=== PATIENT | female | born 1980 | race Caucasian/White ===

== ENCOUNTER 2023-03-30 07:02 | Outpatient (OUT) | payer BC, SELFPAY ==
[2023-03-30 07:28] LABS: Basophils Percent Auto 0.7 % (0.2-2.0); Eosinophils Absolute Auto 0.1 10^3/uL (0.0-0.7); Eosinophils Percent Auto 2.5 % (0.9-7.0); Hematocrit 42.5 % (36.0-48.0); Immature Granulocytes Abs Auto 0.01 10^3/uL (0.00-0.03); Immature Granulocytes Pct Auto 0.2 % (0.0-0.5); Lymphocytes Percent Auto 35.9 % (20.5-60.0); Mean Corpuscular HGB Conc 32.9 g/dL (29.9-35.2); Mean Corpuscular Hemoglobin 29.2 pg (26.7-34.0); Mean Corpuscular Volume 88.7 fL (81.0-99.0); Mean Platelet Volume 9.8 fL (9.5-13.5); Monocytes Absolute Auto 0.5 10^3/uL (0.3-0.8); Monocytes Percent Auto 8.8 % (1.7-12.0); Neutrophils Absolute Auto 2.9 10^3/uL (1.4-6.5); Neutrophils Percent Auto 51.9 % (43.0-75.0); Platelet Count 323 10^3/uL (150-450); Red Blood Count 4.79 10^6/uL (4.20-5.40); Red Cell Distribution Width 12.8 % (11.0-15.0); White Blood Count 5.6 10^3/uL (4.0-11.0)
[2023-03-30 08:24] LABS: Alanine Aminotransferase 31 U/L (14-59); Albumin Globulin Ratio 0.9; Albumin Level 3.5 g/dL (3.4-5.0); Alkaline Phosphatase 64 U/L (46-116); Anion Gap 13.7; Aspartate Amino Transferase 15 U/L (15-37); BUN Creatinine Ratio 15.9; Bilirubin Total 0.5 mg/dL (0.2-1.0); Calcium 8.5 mg/dL (8.5-10.1); Carbon Dioxide 23.2 mmol/L (21.0-32.0); Chloride 103 mmol/L (98-107); Chol HDL Ratio 3.1; Cholesterol 179 mg/dL (<=200); Estimated GFR (African America >60 (>=60); Estimated GFR (Non-African Ame >60 (>=60); Globulin 3.7 g/dL; Glucose 102 mg/dL (74-106); HDL Cholesterol 57 mg/dL (40-60); Potassium 3.9 mmol/L (3.5-5.1); Sodium 136 mmol/L (136-145); Thyroid Stimulating Hormone 1.656 uIU/mL (0.358-3.740); Total Protein 7.2 g/dL (6.4-8.2); Triglycerides 70 mg/dL (<=150)
[2023-03-30 08:44] LABS: Estimated Average Glucose 100 mg/dL; Glycohemoglobin A1C 5.1 % (4.5-6.2)
== END 2023-03-30 07:03 | disposition home or self-care (01) ==
PROVIDERS: PCP Internal Medicine; Visit Provider Internal Medicine
DX: Z00.00 Encounter for general adult medical examination without abnormal findings (principal)
CPT/HCPCS: 36415; 80053; 80061; 83036; 84443; 85025

== ENCOUNTER 2023-03-31 15:34 | Outpatient (OUT) | payer BC, SELFPAY ==
--- NOTE | 2023-03-31 15:37 | MM_ITS ---
Patient: EDDIE VARGAS Exam Date: 03/31/2023 : 1980 Gender:F Ordering : DR Gonzalez Wahl D.O. Admission #: [id number] Family : Order #: [id number] CLICK HERE TO VIEW EXAM RADIOLOGY REPORT PROCEDURE: MM TOMOSYNTHESIS SCREENING BI COMPARISON: MG MAMM SCREEN SUSAN W CAD, 02/06/2020. MG MAMM SCREEN SUSAN W CAD, 01/05/2019. MG MAMM SUSAN SCRN W CAD DIG, 02/13/2014. INDICATIONS: Screening mammogram Z12.31 Calculator Name NCI Breast Cancer Risk Assessment Tool 5 Year Breast Cancer Risk 0.90% Lifetime Breast Cancer Risk 11.70% Personal Breast Cancer No Personal Ovarian Cancer No Treatments None Family Cancers Mother with renal cancer cancer at age 60. LOCATION: [facility] BREAST COMPOSITION: Extremely dense, which lowers the sensitivity of mammography. FINDINGS: DIAGNOSTIC CATEGORY 1--NEGATIVE. RIGHT BREAST: No significant suspicious finding. No significant change has occurred. LEFT BREAST: No significant suspicious finding. No significant change has occurred. RECOMMENDATIONS: ROUTINE MAMMOGRAM AND CLINICAL EVALUATION IN 12 MONTHS. PLEASE NOTE: A NORMAL MAMMOGRAM DOES NOT EXCLUDE THE POSSIBILITY OF BREAST CANCER. A CLINICALLY SUSPICIOUS PALPABLE LUMP SHOULD BE BIOPSIED. Dictated by: Dejan Callaway M.D. on 04/01/2023 at 13:30 Approved by: Dejan Callaway M.D. on 04/01/2023 at 13:32
== END 2023-03-31 15:35 | disposition home or self-care (01) ==
LOC: MAMMO 15:35
PROVIDERS: PCP Internal Medicine; Visit Provider Internal Medicine
DX: Z12.31 Encounter for screening mammogram for malignant neoplasm of breast (principal); Z80.51 Family history of malignant neoplasm of kidney
CPT/HCPCS: 77063; 77067

== ENCOUNTER 2024-02-16 14:12 | Outpatient (OUT) | payer BC, SELFPAY | END 2024-02-16 14:13 | disposition home or self-care (01) | LOC: PST 14:12 | PROVIDERS: PCP Internal Medicine; Visit Provider Surgery | DX: Z01.818 Encounter for other preprocedural examination (principal); Z12.11 Encounter for screening for malignant neoplasm of colon; Z80.0 Family history of malignant neoplasm of digestive organs ==

== ENCOUNTER 2024-04-05 11:02 | Outpatient (OUT) | payer BC, SELFPAY ==
--- NOTE | 2024-04-05 11:04 | MM_ITS ---
Patient Name: EDDIE VARGAS MR#: [id number] : 1980 Exam Date: 04/05/2024 Ordering Doctor: DR Gonzalez Wahl D.O. RADIOLOGY REPORT PROCEDURE: MM TOMOSYNTHESIS SCREENING BI COMPARISON: MM TOMOSYNTHESIS SCREENING BI, 03/31/2023. MG MAMM SCREEN SUSAN W CAD, 02/06/2020. INDICATIONS: Screening Calculator Name NCI Breast Cancer Risk Assessment Tool 5 Year Breast Cancer Risk 1.00% Lifetime Breast Cancer Risk 11.60% Personal Breast Cancer No Personal Ovarian Cancer No Treatments None Family Cancers Mother with renal cancer cancer at age 60. LOCATION: [facility] BREAST COMPOSITION: The breasts are extremely dense, which lowers the sensitivity of mammography. FINDINGS: DIAGNOSTIC CATEGORY 2--BENIGN FINDING. NO CHANGE FROM COMPARISON. Scattered benign-appearing lymph nodes are present. RIGHT BREAST: No significant suspicious finding. LEFT BREAST: No significant suspicious finding. RECOMMENDATIONS: ROUTINE MAMMOGRAM AND CLINICAL EVALUATION IN 12 MONTHS. PLEASE NOTE: A NORMAL MAMMOGRAM DOES NOT EXCLUDE THE POSSIBILITY OF BREAST CANCER. A CLINICALLY SUSPICIOUS PALPABLE LUMP SHOULD BE BIOPSIED. Dictated by: Fabrice Altamirano MD on 04/05/2024 at 12:01 Approved by: Fabrice Altamirano MD on 04/05/2024 at 12:01
== END 2024-04-05 11:03 | disposition home or self-care (01) ==
LOC: MAMMO 11:02
PROVIDERS: PCP Internal Medicine; Visit Provider Internal Medicine
DX: Z12.31 Encounter for screening mammogram for malignant neoplasm of breast (principal); Z80.51 Family history of malignant neoplasm of kidney
CPT/HCPCS: 77063; 77067

== ENCOUNTER 2024-04-06 09:58 | Outpatient (OUT) | payer BC, SELFPAY ==
--- OUTSIDE RECORDS SUMMARY | 2024-04-06 10:21 | XMS_ITS | CCD ---
Author Organization [facility] Care Team Providers Care Casing Cleaner Name Role Phone KELVIN HEWITT Consulting Unavailable KELVIN HEWITT Attending Unavailable JAY, DR BRIDGES Primary Care Unavailable KELVIN HEWITT Admitting Unavailable KASH, KELVIN Admitting Unavailable KELVIN HEWITT Consulting Unavailable KELVIN HEWITT Attending Unavailable JAY, DR BRIDGES Primary Care Unavailable JAY, DR BRIDGES Consulting Unavailable JAY, DR BRIDGES Attending Unavailable JAY, DR BRIDGES Admitting Unavailable JAY, DR BRIDGES Primary Care Unavailable Gonzalez Thompson Unavailable Primary Care Provider UnavailRAZIA Cordova Attending Unavailable GONZALEZ THOMPSON Referring Unavailable GONZALEZ THOMPSON Primary Care Unavailable Allergies Allergy Classification Reported Allergen(s) Allergy Type Date of Onset Reaction(s) Facility (1 source) Shellfish Drug allergy (disorder) [facility] Repository (20 sources) Shellfish Drug allergy Comment:SHELLShelly SARY [place] Other (1 source) Shellfish; Translations: [SHELLFISH DERIVED] Propensity to adverse reactions to food (disorder) 4 [facility] Repository (1 source) FISH CONTAINING PRODUCTS; Translations: [FISH CONTAINING PRODUCTS] Propensity to adverse reactions to food (disorder) 9 [facility] Repository Medications Current Medications Medication Drug Class(es) Dates Sig (Normalized) Sig (Original) Norgestimate-Ethin yl Estradiol (15 sources) Progestin, Estrogen Start: 11-25-2023 take 1 tablet by mouth once daily Norgestimate-Ethi nyl Estradiol (Nadiya) 0.25-35 mg-mcg tablet Active 1 TAB PO Daily November 25, 2023 12:00am take 1 tablet by mouth once bobby y Nadiya 0.25-35 MG-MCG TAKE 1 TABLET BY MOUTH EVERY DAY for 84 Active traZODone hydrochloride 50 mg oral tablet (2 sources) Serotonin Reuptake Inhibitor Start: 12-03-2023 take 1 tablet by mouth once daily at bedtime Trazodone Active 0 .ROUTE .COMPLEX 90 December 03, 2023 4:04pm TAKE 1 TABLET BY MOUTH EVERYDAY AT BEDTIME Start: 12-03-2023 End: 12-03-2023 take 50 mg by mouth once daily at bedtime Trazodone Discontinued 50 MG PO Daily at bedtime December 03, 2023 12:00am December 03, 2023 4:04pm Completed/Discontinued Medications Medication Drug Class(es) Dates Sig (Normalized) Sig (Original) phentermine hydrochloride 37.5 mg oral tablet (20 sources) Sympathomimetic Amine Anorectic Start: 09-06-2023 End: 03-21-2024 take 37.5 mg by mouth once daily Phentermine Discontinued 37.5 MG PO Daily October 05, 2023 10:45pm November 10, 2023 12:54pm Rx #6 Start: 08-04-2023 take 1 tablet by jairon once daily before breakfast Adipex-P 37.5 MG 1 tablet before breakfast Orally Once a day for 30 days Rx #5 Jul, Active Start: 07-31-2023 take 1 tablet by jairon once daily before breakfast Adipex-P 37.5 MG 1 tablet before breakfast Orally Once a day for 30 days Rx #5 Jul, Active Start: 06-23-2023 take 1 tablet by jairon once daily before breakfast Adipex-P 37.5 MG 1 tablet before breakfast Orally Once a day for 30 days start 06/23Jun, Active Start: 05-21-2023 take 1 tablet by jairon once daily before breakfast Adipex-P 37.5 MG 1 tablet before breakfast Orally Once a day for 30 days start 05/24May, Active Start: 04-24-2023 take 1 tablet by jairon once daily before breakfast Adipex-P 37.5 MG 1 tablet before breakfast Orally Once a day for 30 days start 04/24Apr, Active Start: 03-24-2023 take 1 tablet by jairon once daily before breakfast Adipex-P 37.5 MG 1 tablet before breakfast Orally Once a day Start 03/21Mar, Active Start: 03-20-2023 take 1 tablet by jairon th once daily before breakfast Adipex-P 37.5 MG 1 tablet before breakfast Orally Once a day for 30 days Start 03/21Mar, Active Sprintec (28) 0.25-35mg-mcg (20 sources) Start: 05-25-2022 take 1 tablet by mouth once daily as needed Sprintec (28) 0.25-35mg-mcg Sprintec (28) 0.25-35mg-mcg, 1 (one) Tablet daily # 28, 05/25/2022, Ref. x11. Active oral daily for 28 Please dispense 3 pill packs at one time. *Reorder from [employer] TV for eRx and Interaction Alerts* May, Not-Taking/PRN Start: 05-25-2022 take 1 tablet by jairon th once daily Sprintec (28) 0.25-35mg-mcg Sprintec (28) 0.25-35mg-mcg, 1 (one) Tablet daily # 28, 05/25/2022, Ref. x11. Active oral daily for 28 Please dispense 3 pill packs at one time. *Reorder from [employer] TV for eRx and Interaction Alerts* May, Not-Taking Problems Active Problems Problem Classification Problem Date Documented Date Episodic/Chronic Anxiety disorders (20 sources) Generalized anxiety disorder; Translations: [Generalized anxiety disorder] Chronic Contraceptive and procreative management (5 sources) Surveillance of contraception; Translations: [Encounter for contraceptive management, unspecified] Episodic Headache; including migraine (9 sources) Chronic migraine without aura, non-refractory; Translations: [Migraine without aura, not intractable, without status migrainosus] 11-25-2023 Chronic Miscellaneous mental health disorders (7 sources) Primary insomnia; Translations: [Primary insomnia] 11-25-2023 Chronic Mood disorders (6 sources) Mood swings; Translations: [Emotional lability] 11-25-2023 Episodic Other nutritional; endocrine; and metabolic disorders (20 sources) Body mass index 40+ - severely obese; Translations: [Body mass index (BMI) 40.0-44.9, adult] Chronic Other nutritional; endocrine; and metabolic disorders (18 sources) Simple obesity ; Translations: [Other obesity due to excess calories] Onset: 10-06-2016 Chronic Other nutritional; endocrine; and metabolic disorders (19 sources) Morbid obesity; Translations: [Morbid (severe) obesity due to excess calories] Chronic Other nutritional; endocrine; and metabolic disorders (9 sources) Morbid (severe) obesity due to excess calories; Translations: [Morbid (severe) obesity due to excess calories] Chronic Other nutritional; endocrine; and metabolic disorders (1 source) Body mass index (BMI) 40.0-44.9, adult Chronic Other nutritional; endocrine; and metabolic disorders (20 sources) Body mass index 30+ - obesity; Translations: [Body mass index (BMI) 39.0-39.9, adult] Chronic Other nutritional; endocrine; and metabolic disorders (8 sources) Other obesity due to excess calories; Translations: [Other obesity due to excess calories] Onset: 10-06-2016 Chronic Other nutritional; endocrine; and metabolic disorders (2 sources) Body mass index (BMI) 39.0-39.9, adult Chronic Other nutritional; endocrine; and metabolic disorders (1 source) Body mass index (BMI) 38.0-38.9, adult Chronic Other nutritional; endocrine; and metabolic disorders (1 source) Body mass index (BMI) 37.0-37.9, adult Chronic Other nutritional; endocrine; and metabolic disorders (1 source) Obesity caused by energy imbalance; Translations: [Morbid (severe) obesity due to excess calories] 11-25-2023 Chronic Other nutritional; endocrine; and metabolic disorders (2 sources) Obesity; Translations: [Obesity, unspecified] 11-25-2023 Chronic Other nutritional; endocrine; and metabolic disorders (1 source) Obesity, unspecified; Translations: [Obesity, unspecified] 11-25-2023 Chronic Other screening for suspected conditions (not mental disorders or infectious disease) (4 sources) Encounter for screening mammogram for malignant neoplasm of breast; Translations: [Encounter for screening for malignant neoplasm of colon] Onset: 01-26-2024 Episodic Residual codes; unclassified (5 sources) Family history of malignant neoplasm of gastrointestinal tract; Translations: [Family history of malignant neoplasm of digestive organs] Episodic Residual codes; unclassified (2 sources) Family history of malignant neoplasm of digestive organs; Translations: [Family history of malignant neoplasm of gastrointestinal tract] Onset: 01-26-2024 03-24-2024 Episodic Residual codes; unclassified (1 source) Family history of cancer of colon; Translations: [Family history of malignant neoplasm of digestive organs] 03-22-2024 Episodic Unclassified (3 sources) CONTACT W/AND (SUSP) EXPOS COVID-19; Translations: [CONTACT W/AND (SUSP) EXPOS COVID-19] Onset: 08-07-2022 Unclassified (1 source) Colon Cancer Screening Onset: 01-26-2024 Viral infection (1 source) COVID-19; Translations: [COVID-19] Onset: 08-06-2022 Past or Other Problems Problem Classification Problem Date Documented Da te Episodic/Chronic Abdominal pain (5 sources) Right upper quadrant pain; Translations: [Right upper quadrant pain] Onset: 11-20-2017 Episodic Conditions associated with dizziness or vertigo (5 sources) Dizziness and giddiness; Translations: [Dizziness and giddiness] Onset: 03-18-2019 Episodic Joint disorders and dislocations; trauma-related (5 sources) Current tear of medial cartilage AND/OR meniscus of knee; Translations: [Other tear of medial meniscus, current injury, left knee, initial encounter] Onset: 10-06-2016 Episodic Nausea and vomiting (5 sources) Nausea and vomiting; Translations: [Nausea with vomiting, unspecified] Onset: 11-20-2017 Episodic Other nutritional; endocrine; and metabolic disorders (5 sources) Abnormal weight gain; Translations: [Abnormal weight gain] Onset: 08-25-2013 Episodic Spondylosis; intervertebral disc disorders; other back problems (5 sources) Sciatica; Translations: [Sciatica, unspecified side] Onset: 02-23-2014 Episodic Syncope (5 sources) Syncope and collapse; Translations: [Syncope and collapse] Onset: 11-09-2015 Episodic Unclassified (1 source) CONTACT W/AND (SUSP) EXPOS COVID-19; Translations: [CONTACT W/AND (SUSP) EXPOS COVID-19] Onset: 08-03-2022 Results Test Name Value Interpretation Reference Range Facility ASYMPTOMATIC COVID-19 ANTIGE Non 08-03-2022 EUA Statement SEE BELOW Normal [facility] Comment on above: Result Comment: This test has not been FDA cleared or approved, but has been authorized by the FDA under an Emergency Use Authorization (EUA) for use by authorized laboratories certified under CLIA that meet the requirements to perform moderate or high complexity testing. This test has been authorized only for the detection of proteins from SARS-CoV-2, not for any other viruses or pathogens. The emergency use of this test is authorized for the duration of the declaration that circumstances exist justifying the authorization of emergency use of in vitro diagnostic tests for detection and/or diagnosis of Covid-19 under section 564(b)(1) of the Act, 21 U.S.C. 360bbb-3(b)(1), unless the declaration is terminated or authorization is revoked sooner. Performed By: #### C VDAGA #### [facility] [address] [place] [address] Dr. Lee Huang SARS-CoV-2 (COVID-19) RNA ISAIAH+probe Ql (Unsp spec) Negative Normal NEGATIVE [facility] Comment on above: Result Comment: Nega tive results are presumptive. They do not preclude infection and should not be used as the sole basis for treatment decisions. Additional confirmatory testing by a molecular method should be considered. Performed By: #### C VDAGA #### [facility] [address] [place] [address] Dr. Lee Huang Covid-19 PCR (CVDTB)on 07-11 SARS-CoV-2 (COVID-19) RNA ISAIAH+probe Ql (Unsp spec) Detected Critically abnormal NOT DETECTED [facility] Comment on above: Result Comment: This test is not yet approved or cleared by the [place] FDA. When there are no FDA-approved or cleared tests available, and other criteria are met, FDA can make tests available under an emergency access mechanism called an Emergency Use Authorization (EUA). The EUA for this test is supported by the Mold Cutting Machine Operator of Health and Human Service's declaration that circumstances exist to justify the emergency use of in vitro diagnostics for the detection and/or diagnosis of the virus that causes COVID-19. This EUA will remain in effect for the duration of the COVID-19 declaration justifying emergency of IVDs, unless it is terminated or revoked by the FDA (after which the test may no longer be used). Performed By: #### C VDTBH #### [facility] [address] [place] [address] Dr. Lee Huang CBC AUTO DIFFon 10-16-2021 BASO # 0.1 103/ul Normal 0.0-0.1 [facility] Comment on above: Performed By: #### C BC #### [facility] [address] [place] [address] Dr. Lee Huang Basophils/100 WBC (Bld) 0.7 % Normal 0.2-2.0 [facility] Comment on above: Performed By: #### C BC #### [facility] [address] [place] [address] Dr. Lee Huang EO # 0.1 103/ul Normal 0.0-0.7 [facility] Comment on above: Performed By: #### C BC #### [facility] [address] [place] [address] Dr. Lee Huang Eosinophils/100 WBC (Bld) 2.0 % Normal 0.9-7.0 [facility] Comment on above: Performed By: #### C BC #### [facility] [address] [place] [address] Dr. Lee Huang Erythrocyte distribution width (RBC) [Ratio] 12.8 % Normal 11.0-15.0 [facility] Comment on above: Performed By: #### C BC #### [facility] [address] [place] [address] Dr. Lee Huang Hematocrit (Bld) [Volume fraction] 42.5 % Normal 36.0-48.0 [facility] Comment on above: Performed By: #### C BC #### [facility] [address] [place] [address] Dr. Lee Huang Hemoglobin (Bld) [Mass/Vol] 14.0 g/dL Normal 12.0-16.0 [facility] Comment on above: Performed By: #### C BC #### [facility] [address] [place] [address] Dr. Lee Huang IG # 0.02 10e3/ul Normal 0.00-0.03 [facility] Comment on above: Performed By: #### C BC #### [facility] [address] [place] [address] Dr. Lee Huang IG % 0.3 % Normal 0.0-0.5 [facility] Comment on above: Performed By: #### C BC #### [facility] [address] [place] [address] Dr. Lee Huang LYMPH # 2.0 103/ul Normal 1.2-3.8 [facility] Comment on above: Performed By: #### C BC #### [facility] [address] [place] [address] Dr. Lee Huang Lymphocytes/100 WBC (Bld) 28.2 % Normal 20.5-60.0 [facility] Comment on above: Performed By: #### C BC #### [facility] [address] [place] [address] Dr. Lee Huang MANUAL DIFF REQ NO Normal [facility] Comment on above: Performed By: #### C BC #### [facility] [address] [place] [address] Dr. Lee Huang MCH (RBC) [Entitic mass] 29.4 pg Normal 26.7-34.0 [facility] Comment on above: Performed By: #### C BC #### [facility] [address] [place] [address] Dr. Lee Huang MCHC (RBC) [Mass/Vol] 32.9 g/dL Normal 29.9-35.2 [facility] Comment on above: Performed By: #### C BC #### [facility] [address] [place] [address] Dr. Lee Huang MCV (RBC) [Entitic vol] 89.1 fL Normal 81.0-99.0 [facility] Comment on above: Performed By: #### C BC #### [facility] [address] [place] [address] Dr. Lee Huang MONO # 0.5 103/ul Normal 0.3-0.8 [facility] Comment on above: Performed By: #### C BC #### [facility] [address] [place] [address] Dr. Lee Huang Monocytes/100 WBC (Bld) 7.2 % Normal 1.7-12.0 [facility] Comment on above: Performed By: #### C BC #### [facility] [address] [place] [address] Dr. Lee Huang NEUT # 4.3 103/ul Normal 1.4-6.5 [facility] Comment on above: Performed By: #### C BC #### [facility] [address] [place] [address] Dr. Lee Huang Neutrophils/100 WBC (Bld) 61.6 % Normal 43.0-75.0 [facility] Comment on above: Performed By: #### C BC #### [facility] [address] [place] [address] Dr. Lee Huang Platelet mean volume (Bld) [Entitic vol] 9.8 fL Normal 9.5-13.5 [facility] Comment on above: Performed By: #### C BC #### [facility] [address] [place] [address] Dr. Lee Huang PLT 317 103/ul Normal 150-450 [facility] Comment on above: Performed By: #### C BC #### [facility] [address] [place] [address] Dr. Lee Huang RBC 4.77 106/ul Normal 4.20-5.40 [facility] Comment on above: Performed By: #### C BC #### [facility] [address] [place] [address] Dr. Lee Huang WBC 6.9 103/ul Normal 4.0-11.0 [facility] Comment on above: Performed By: #### C BC #### [facility] [address] [place] [address] Dr. Lee Huang GLYCOHEMOGLOBIN A1Con 2021 ADA RECOMMENDATION ADA THERAPEUTIC TARGET 6.0 - 7.0 ACTION SUGGESTED > 7.0 Normal [facility] Comment on above: Performed By: #### A 1C #### [facility] [address] [place] [address] Dr. Lee Huang Glucose [Mass/Vol] 108 mg/dL Normal [facility] Comment on above: Performed By: #### A 1C #### [facility] [address] [address] [address] Lee Huang HbA1c (Bld) [Mass fraction] 5.4 % Normal <=6.0 [facility] Comment on above: Performed By: #### A 1C #### [facility] [address] [address] [address] Lee Huang LIPID PROFILEon 10-16-2021 CHOL-HDL RATIO NORM SEE BELOW Normal [facility] Comment on above: Result Comment: 3.3 - 4.4 LOW RISK 4.4 - 7.1 AVERAGE RISK 7.1 - 11.0 MODERATE RISK >11.0 HIGH RISK Performed By: #### C MP, LIPID, TSH #### [facility] [address] [address] [address] Lee Huang Cholesterol [Mass/Vol] 193 mg/dL Normal <=200 [facility] Comment on above: Performed By: #### C MP, LIPID, TSH #### [facility] [address] [address] [address] Lee Huang Cholesterol in HDL [Mass/Vol] 56 mg/dL Normal [facility] Comment on above: Performed By: #### C MP, LIPID, TSH #### [facility] [address] [address] [address] Lee Huang Cholesterol in LDL [Mass/Vol] 116.6 mg/dL Normal [facility] Comment on above: Performed By: #### C MP, LIPID, TSH #### [facility] [address] [place] [address] Dr. Lee Huang Cholesterol.total/Ch olesterol in HDL [Mass ratio] 3.4 {ratio} Normal [facility] Comment on above: Performed By: #### C MP, LIPID, TSH #### [facility] [address] [place] [address] Dr. Lee Huang HDL NORMAL > or = 60 mg/dl - LOW CARDIOVASCULAR RISK <40 mg/dl - HIGH CARDIOVASCULAR RISK Normal [facility] Comment on above: Performed By: #### C MP, LIPID, TSH #### [facility] [address] [address] [address] Lee Huang LDL CALC NORMAL SEE BELOW Normal [facility] Comment on above: Result Comment: <100 mg/dl OPTIMAL 100 - 129 mg/dl NEAR OR ABOVE OPTIMAL 130 - 159 mg/dl BORDERLINE HIGH 160 - 189 mg/dl HIGH >190 mg/dl VERY HIGH Performed By: #### C MP, LIPID, TSH #### [facility] [address] [address] [address] Lee Huang Triglyceride [Mass/Vol] 102 mg/dL Normal <=150 [facility] Comment on above: Performed By: #### C MP, LIPID, TSH #### [facility] [address] [place] [address] Dr. Lee Huang VLDL CALC 20.4 mg/dL Normal [facility] Comment on above: Performed By: #### C MP, LIPID, TSH #### [facility] [address] [place] [address] Dr. Lee Huang PROF 14(COMP METB)on 022 Albumin [Mass/Vol] 3.3 g/dL Critically low 3.5-5.0 [facility] Comment on above: Performed By: #### C MP, LIPID, TSH #### [facility] [address] [place] [address] Dr. Lee Huang Albumin/Globulin [Mass ratio] 0.9 {ratio} Normal [facility] Comment on above: Performed By: #### C MP, LIPID, TSH #### [facility] [address] [place] [address] Dr. Lee Huang ALP [Catalytic activity/Vol] 61 U/L Normal 38-126 [facility] Comment on above: Performed By: #### C MP, LIPID, TSH #### [facility] [address] [place] [address] Dr. Lee Huang ALT [Catalytic activity/Vol] 29 U/L Normal 9-52 [facility] Comment on above: Performed By: #### C MP, LIPID, TSH #### [facility] [address] [place] [address] Dr. Lee Huang Anion gap [Moles/Vol] 11.6 mmol/L Normal [facility] Comment on above: Performed By: #### C MP, LIPID, TSH #### [facility] [address] [address] [address] Lee Huang AST [Catalytic activity/Vol] 13 U/L Critically low 14-36 [facility] Comment on above: Performed By: #### C MP, LIPID, TSH #### [facility] [address] [address] [address] Lee Huang Bilirubin [Mass/Vol] 0.4 mg/dL Normal 0.2-1.3 [facility] Comment on above: Performed By: #### C MP, LIPID, TSH #### [facility] [address] [place] [address] Dr. Lee Huang Calcium [Mass/Vol] 8.4 mg/dL Normal 8.4-10.2 [facility] Comment on above: Performed By: #### C MP, LIPID, TSH #### [facility] [address] [place] [address] Dr. Lee Huang Chloride [Moles/Vol] 105 mmol/L Normal 98-107 [facility] Comment on above: Performed By: #### C MP, LIPID, TSH #### [facility] [address] [place] [address] Dr. Lee Huang CO2 [Moles/Vol] 26.3 mmol/L Normal 22.0-30.0 [facility] Comment on above: Performed By: #### C MP, LIPID, TSH #### [facility] [address] [place] [address] Dr. Lee Huang Creatinine [Mass/Vol] 0.84 mg/dL Normal 0.52-1.04 [facility] Comment on above: Performed By: #### C MP, LIPID, TSH #### [facility] [address] [place] [address] Dr. Lee Huang EGFR-AF GUINEAN >60 Normal >=60 [facility] Comment on above: Performed By: #### C MP, LIPID, TSH #### [facility] [address] [address] [address] Lee Huang EGFR-NON AF GUINEAN >60 Normal >=60 [facility] Comment on above: Performed By: #### C MP, LIPID, TSH #### [facility] [address] [place] [address] Dr. Lee Huang Globulin (S) [Mass/Vol] 3.8 g/dL Normal [facility] Comment on above: Performed By: #### C MP, LIPID, TSH #### [facility] [address] [place] [address] Dr. Lee Huang Glucose [Mass/Vol] 87 mg/dL Normal 74-106 [facility] Comment on above: Performed By: #### C MP, LIPID, TSH #### [facility] [address] [place] [address] Dr. Lee Huang Potassium [Moles/Vol] 3.9 mmol/L Normal 3.4-5.0 [facility] Comment on above: Performed By: #### C MP, LIPID, TSH #### [facility] [address] [place] [address] Dr. Lee Huang Protein [Mass/Vol] 7.1 g/dL Normal 6.1-8.2 [facility] Comment on above: Performed By: #### C MP, LIPID, TSH #### [facility] [address] [place] [address] Dr. Lee Huang Sodium [Moles/Vol] 139 mmol/L Normal 137-145 [facility] Comment on above: Performed By: #### C MP, LIPID, TSH #### [facility] [address] [place] [address] Dr. Lee Huang Urea nitrogen [Mass/Vol] 15.0 mg/dL Normal 7.0-17.0 [facility] Comment on above: Performed By: #### C MP, LIPID, TSH #### [facility] [address] [place] [address] Dr. Lee Huang Urea nitrogen/Creatinine [Mass ratio] 17.9 mg/mg Normal [facility] Comment on above: Performed By: #### C MP, LIPID, TSH #### [facility] [address] [place], [place] [address] Dr. Lee Huang TSHon 10-16-2021 TSH 1.331 uIU/mL Normal 0.470-4.680 [facility] [facility] Comment on above: Performed By: #### C MP, LIPID, TSH #### [facility] [address] [place], [place] [address] Dr. Lee Huang TSH RANGE SEE BELOW Normal [facility] Comment on above: Result Comment: <0.3 4 UIU/ml HYPERTHYROID 0.34-5.60 UIU/ml EUTHYROID >5.60 UIU/ml HYPOTHYROID Performed By: #### C MP, LIPID, TSH #### [facility] [address] [place] [address] [address] Lee Huang Vital Signs Date Time Vital Sign Value Performing Clinician Facility 03-24-2024 11:31-0400 Body height 163.83 cm [facility] 03-24-2024 11:31-0400 Body mass index (BMI) [Ratio] 32.3 kg/m2 [facility] 03-24-2024 11:31-0400 Body weight 86.8 kg [facility] 03-24-2024 11:31-0400 Diastolic blood pressure 87 mm[Hg] [facility] 03-24-2024 11:31-0400 Heart rate 82 /min [facility] 03-24-2024 11:31-0400 Respiratory rate 12 /min [facility] 03-24-2024 11:31-0400 Systolic blood pressure 129 mm[Hg] [facility] 11-25-2023 10:05-0400 Body height 163.83 cm [facility] 11-25-2023 10:05-0400 Body mass index (BMI) [Ratio] 34.7 kg/m2 [facility] 11-25-2023 10:05-0400 Body weight 93.21 kg [facility] 11-25-2023 10:05-0400 Diastolic blood pressure 98 mm[Hg] [facility] 11-25-2023 10:05-0400 Heart rate 67 /min [facility] 11-25-2023 10:05-0400 Respiratory rate 12 /min [facility] 11-25-2023 10:05-0400 Systolic blood pressure 137 mm[Hg] [facility] 10-05-2023 21:45-0500 Body height 163.83 cm Gonzalez Ball Other [facility] [employer] Other 09-07-2023 08:57-0500 Body height 163.83 cm Gonzalez Ball Other [facility] 09-07-2023 08:57-0500 Body mass index (BMI) [Ratio] 37.72 kg/m2 Gonzalez Ball Other [facility] [employer] Other 09-07-2023 08:57-0500 Body weight 101.24 kg Gonzalez Ball Other [facility] 09-07-2023 08:57-0500 Diastolic blood pressure 89 mm[Hg] Gonzalez Ball Other [facility] 09-07-2023 08:57-0500 Systolic blood pressure 135 mm[Hg] Gonzalez Ball Other [facility] 09-02-2023 14:30-0500 Body height 163.83 cm Gonzalez Ball Other [facility] 09-02-2023 14:30-0500 Body mass index (BMI) [Ratio] 37.72 kg/m2 Gonzalez Ball Other [facility] [employer] Other 09-02-2023 14:30-0500 Body weight 101.24 kg Gonzalez Ball Other [facility] 09-02-2023 14:30-0500 Diastolic blood pressure 89 mm[Hg] Gonzalez Ball Other [facility] 09-02-2023 14:30-0500 Respiratory rate 12 /min Gonzalez Ball Other [facility] [employer] Other 09-02-2023 14:30-0500 Systolic blood pressure 135 mm[Hg] Gonzalez Ball Other [facility] 07-31-2023 08:31-0500 Body height 163.83 cm Gonzalez Ball Other [facility] Other 07-31-2023 08:31-0500 Body mass index (BMI) [Ratio] 38.22 kg/m2 Gonzalez Ball Other [facility] Other 07-31-2023 08:31-0500 Body weight 102.6 kg Gonzalez Ball Other [facility] Other 07-31-2023 08:31-0500 Diastolic blood pressure 74 mm[Hg] Gonzalez Ball Other [facility] Other 07-31-2023 08:31-0500 Systolic blood pressure 126 mm[Hg] Gonzalez Ball Other [facility] Other 06-23-2023 08:24-0500 Body height 163.83 cm Gonzalez Ball Other [facility] Other 06-23-2023 08:24-0500 Body mass index (BMI) [Ratio] 38.36 kg/m2 Gonzalez Ball Other [facility] Other 06-23-2023 08:24-0500 Body weight 102.97 kg Gonzalez Ball Other [facility] Other 06-23-2023 08:24-0500 Diastolic blood pressure 76 mm[Hg] Gonzalez Ball Other [facility] Other 06-23-2023 08:24-0500 Systolic blood pressure 124 mm[Hg] Gonzalez Ball Other [facility] Other 06-11-2023 09:43-0400 Body height 163.83 cm Gonzalez Ball Other [facility] Other 05-21-2023 08:43-0400 Body height 163.83 cm Gonzalez Ball Other [facility] Other 05-15-2023 12:00-0400 Body height 163.83 cm Gonzalez Ball Other [facility] Other 05-15-2023 12:00-0400 Body mass index (BMI) [Ratio] 38.7 kg/m2 Gonzalez Ball Other [facility] Other 05-15-2023 12:00-0400 Body weight 103.87 kg Gonzalez Ball Other [facility] Other 05-15-2023 12:00-0400 Diastolic blood pressure 76 mm[Hg] Gonzalez Ball Other [facility] Other 05-15-2023 12:00-0400 Systolic blood pressure 126 mm[Hg] Gonzalez Ball Other [facility] Other 04-17-2023 12:00-0400 Body height 163.83 cm Gonzalez Ball Other [facility] Other 04-17-2023 12:00-0400 Body mass index (BMI) [Ratio] 39.54 kg/m2 Gonzalez Ball Other [facility] Other 04-17-2023 12:00-0400 Body weight 106.14 kg Gonzalez Ball Other [facility] Other 04-17-2023 12:00-0400 Diastolic blood pressure 80 mm[Hg] Gonzalez Ball Other [facility] Other 04-17-2023 12:00-0400 Systolic blood pressure 130 mm[Hg] Gonzalez [employer] Other [facility] Other 03-20-2023 09:30-0400 Body height 163.83 cm Gonzalez [employer] Other [facility] Other 03-20-2023 09:30-0400 Body mass index (BMI) [Ratio] 40.56 kg/m2 Gonzalez [employer] Other [facility] Other 03-20-2023 09:30-0400 Body weight 108.86 kg Gonzalez [employer] Other [facility] Other 03-20-2023 09:30-0400 Diastolic blood pressure 90 mm[Hg] Gonzalez [employer] Other [facility] Other 03-20-2023 09:30-0400 Respiratory rate 12 /min Gonzalez [employer] Other [facility] Other 03-20-2023 09:30-0400 Systolic blood pressure 124 mm[Hg] Gonzalez [employer] Other [facility] Other Encounters Encounter Date Encounter Type Care Provider Facility Start: 03-24-2024 End: 03-24-2024 ambulatory [facility] Work Phone: Start: 03-24-2024 End: 03-24-2024 Encounter for general adult medical examination without abnormal findings [facility] Start: 03-24-2024 End: 03-24-2024 Patient encounter procedure [facility] Work Phone: Start: 01-26-2024 End: 01-26-2024 ambulatory [facility] Start: 11-25-2023 End: 11-25-2023 ambulatory [facility] Work Phone: Start: 11-25-2023 End: 11-25-2023 Patient encounter procedure [facility] Work Phone: Start: 10-05-2023 End: 10-05-2023 ambulatory Gonzalez Thompson Other [facility] Other Start: 10-05-2023 Telephone encounter Gonzalez Thompson [facility] Start: 10-05-2023 Non-patient / Non-visit [facility] Work Phone: Start: 09-18-2023 Chart abstracting Whitney gaxiola 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 Work Phone: [facility] Start: 09-07-2023 End: 09-07-2023 ambulatory Gonzalez Thompson Other [facility] Other Start: 09-07-2023 Telephone encounter Gonzalez Thompson [facility] Start: 09-07-2023 End: 09-07-2023 Patient encounter procedure [facility]- Start: 09-06-2023 End: 09-06-2023 ambulatory Gonzalez Thompson Other [facility] Other Start: 09-06-2023 Telephone encounter Gonzalez Thompson [facility] Start: 09-04-2023 End: 09-04-2023 ambulatory Gonzalez Thompson Other [facility] Other Start: 09-04-2023 Encounter by compute r francis Gonzalez Thompson [facility] Start: 09-02-2023 End: 09-02-2023 ambulatory Gonzalez Thompson Other [facility] Other Start: 09-02-2023 Office outpatient vi sit 15 minutes Gonzalez Thompson [facility] Start: 09-02-2023 End: 09-02-2023 Patient encounter procedure [facility]- Start: 08-05-2023 End: 08-05-2023 ambulatory Gonzalez Thompson Other [facility] Other Start: 08-05-2023 Telephone encounter Gonzalez Ball [facility] Start: 08-04-2023 End: 08-04-2023 ambulatory Gonzalez Ball Other [facility] Other Start: 08-04-2023 Encounter by montana blanco Gonzalez Ball [facility] Start: 07-31-2023 End: 07-31-2023 ambulatory Gonzalez Ball Other [facility] Other Start: 07-31-2023 Telephone encounter Gonzalez Ball [facility] Start: 06-23-2023 End: 06-23-2023 ambulatory Gonzalez Ball Other [facility] Other Start: 06-23-2023 Telephone encounter Gonzalez Ball [facility] Start: 06-11-2023 End: 06-11-2023 ambulatory Gonzalez Ball Other [facility] Other Start: 06-11-2023 Telephone encounter Gonzalez Ball [facility] Start: 05-21-2023 End: 05-21-2023 ambulatory Gonzalez Ball Other [facility] Other Start: 05-21-2023 Telephone encounter Gonzalez Ball [facility] Start: 05-15-2023 End: 05-15-2023 ambulatory Gonzalez Ball Other [facility] Other Start: 05-15-2023 Office outpatient vi sit 15 minutes Gonzalez Ball [facility] Start: 04-17-2023 End: 04-17-2023 ambulatory Gonzalez Ball Other [facility] Other Start: 04-17-2023 Office outpatient vi sit 15 minutes Gonzalez Ball [facility] Start: 04-16-2023 End: 04-16-2023 ambulatory Gonzalez Ball Other [facility] Other Start: 04-16-2023 Telephone encounter Gonzalez Thompson [facility] Start: 03-31-2023 End: 03-31-2023 ambulatory Gonzalez Thompson Other [facility] Other Start: 03-31-2023 Telephone encounter Gonzalez Thompson [facility] Start: 03-24-2023 End: 03-24-2023 ambulatory Gonzalez Thompson Other [facility] Other Start: 03-24-2023 Telephone encounter Gonzalez Thompson [facility] Start: 03-20-2023 End: 03-20-2023 ambulatory Gonzalez Thompson Other [facility] Other Start: 03-20-2023 Encounter for genera l adult medical examination without abnormal findings Gonzalez Thompson [facility] Start: 03-20-2023 Periodic preventive med est patient 40-64yrs Gonzalez Thompson [facility] Start: 08-03-2022 End: 08-03-2022 ambulatory KELVIN HEWITT Facility:[facility] Start: 07-29-2022 End: 07-29-2022 ambulatory KELVIN HEWITT Facility:[facility] Start: 10-17-2021 Encounter for genera l adult medical examination without abnormal findings DR GONZALEZ THOMPSON [facility] Start: 10-16-2021 Adult health examination Frank Thompson Other [facility] Other Start: 10-16-2021 End: 10-17-[address] GONZALEZ THOMPSON Facility:[facility] Start: 10-16-2021 End: 10-17-2021 Encounter for general adult medical examination without abnormal findings DR GONZALEZ THOMPSON Facility:[facility] Start: 01-19-2020 Gynecological examin ation normal Gonzalez Thompson Other [facility] Other Procedures Date Procedure Procedure Detail Performing Clinician Depression screening Chriss Thompson Other Screening for malign ant neoplasm of breast Gonzalez Thompson Other Plan of Treatment Date Care Activity Detail Author Start: 10-13-2023 End: 10-13-2023 Patient encounter procedure 10/13/2023 2:40 PM EST Office Visit [facility] [address] [place] [id number] Whitney Loza APRN-COMPUTER SYSTEMS CONSULTANT [address] [place] [address] [facility] Comprehensive metabo lic 2000 panel - Serum or Plasma [facility] Payers Date Payer Category Payer Blue Cross Blue [facility] [id number] 2019 Unknown [id number] 1978 Unknown [id number] 1978 Unknown [id number] 1978 Unknown [id number] 1978 Unknown [id number] Unknown [id number] Social History Date Type Detail Facility Sex Assigned At [facility] [employer] Other Start: 09-18-2023 Tobacco smoking stat [facility] Never smoked tobacco [facility] Start: 1980 Sex Assigned At Not on file N [facility] Start: 1980 Sex Assigned At Female F [facility] Clinical Notes 03-20-2023 to 09-07-2023 Note Date & Type Note Facility 09-07-2023 Evaluation note Encounter Date Diagnosis Assessment Notes Aug, Morbid (severe) obesity due to excess calories (ICD-10 - E66.01) [facility] [employer] Other 01-28-2024 Evaluation note* Encounter Date Diagnosis Assessment Notes Treatment Notes Treatment Clinical Notes Aug, Morbid (severe) obesity due to excess calories (ICD-10 - E66.01) [facility] Other 01-24-2024 Evaluation note* Encounter Date Diagnosis Assessment Notes Treatment Notes Treatment Clinical Notes Aug, Generalized anxiety disorder (ICD-10 - F41.1) Healthy diet and exercise Declines medical treatment. Aug, Morbid (severe) obesity due to excess calories (ICD-10 - E66.01) This patient has been instructed on a low-fat, high-fiber diet. They are instructed to reduce calories, portion sizes and snacks. It is recommended that they exercise for 30 minutes, 3-5 times weekly. Beginning Rx #6 for Adipex Aug, Body mass index [BMI] 37.0-37.9, adult (ICD-10 - Z68.37) This patient has been instructed on a low-fat, high-fiber diet. They are instructed to reduce calories, portion sizes and snacks. It is recommended that they exercise for 30 minutes, 3-5 times weekly. [facility] Other 12-27-2023 Evaluation note* Encounter Date Diagnosis Assessment Notes Treatment Notes Treatment Clinical Notes Jul, Other obesity due to excess calories (ICD-10 - E66.09) [facility] Other 12-22-2023 Evaluation note* Encounter Date Diagnosis Assessment Notes Treatment Notes Treatment Clinical Notes Jul, Other obesity due to excess calories (ICD-10 - E66.09) [facility] Other 11-14-2023 Evaluation note* Encounter Date Diagnosis Assessment Notes Treatment Notes Treatment Clinical Notes Jun, Other obesity due to excess calories (ICD-10 - E66.09) [facility] Other 10-12-2023 Evaluation note* Encounter Date Diagnosis Assessment Notes Treatment Notes Treatment Clinical Notes May, Other obesity due to excess calories (ICD-10 - E66.09) [facility] Other 10-06-2023 Evaluation note* Encounter Date Diagnosis Assessment Notes Treatment Notes Treatment Clinical Notes May, Other obesity due to excess calories (ICD-10 - E66.09) This patient has been instructed on a low-fat, high-fiber diet. They are instructed to reduce calories, portion sizes and snacks. It is recommended that they exercise for 30 minutes, 3-5 times weekly. May, Body mass index [BMI] 39.0-39.9, adult (ICD-10 - Z68.39) May, Generalized anxiety disorder (ICD-10 - F41.1) Healthy diet, exercise No adverse effects from Adipex [facility] Other 10-06-2023 Evaluation note* Encounter Date Diagnosis Assessment Notes Treatment Notes Treatment Clinical Notes May, Generalized anxiety disorder (ICD-10 - F41.1) Healthy diet, exercise No adverse effects from Adipex May, Morbid (severe) obesity due to excess calories (ICD-10 - E66.01) This patient has been instructed on a low-fat, high-fiber diet. They are instructed to reduce calories, portion sizes and snacks. It is recommended that they exercise for 30 minutes, 3-5 times weekly. May, Body mass index [BMI] 38.0-38.9, adult (ICD-10 - Z68.38) [facility] Other 09-08-2023 Evaluation note* Encounter Date Diagnosis Assessment Notes Treatment Notes Treatment Clinical Notes Apr, Generalized anxiety disorder (ICD-10 - F41.1) Healthy diet and exercise. Not adversely changed w/ use of Adipex. Apr, Other obesity due to excess calories (ICD-10 - E66.09) This patient has been instructed on a low-fat, high-fiber diet. They are instructed to reduce calories, portion sizes and snacks. It is recommended that they exercise for 30 minutes, 3-5 times weekly. Goal BMI < 30 Continue adipex #2 Apr, Body mass index [BMI] 39.0-39.9, adult (ICD-10 - Z68.39) [facility] Other 08-15-2023 Evaluation note* Encounter Date Diagnosis Assessment Notes Treatment Notes Treatment Clinical Notes Mar, Morbid (severe) obesity due to excess calories (ICD-10 - E66.01) [facility] Other 08-11-2023 Evaluation note* Encounter Date Diagnosis Assessment Notes Treatment Notes Treatment Clinical Notes Mar, Wellness examination (ICD-10 - Z00.00) Healthy diet and exercise. Reviewed age-appropriate preventive testing recommended. Mar, Generalized anxiety disorder (ICD-10 - F41.1) Coping w/o treatment, felt the medication made her devoid of feelings. Instructed on healthy diet and exercise Keep active. Counseling offered but declined Mar, Morbid (severe) obesity due to excess calories (ICD-10 - E66.01) This patient has been instructed on a low-fat, high-fiber diet. They are instructed to reduce calories, portion sizes and snacks. It is recommended that they exercise for 30 minutes, 3-5 times weekly. Discussed weight loss treatment - opted to start Adipex - monitor weight and BP Mar, Body mass index [BMI] 40.0-44.9, adult (ICD-10 - Z68.41) Mar, Screening mammogram for breast cancer (ICD-10 - Z12.31) [facility] Other Evaluation noteNo InformationNort [employer] Other Evaluation note* Diagnosis Onset Date Resolution Status FRANCO (generalized anxiety disorder) acute Migraine without aura and wi thout status migrainosus, not intractable acute Obesity acute [facility] Work Phone: Evaluation note* Diagnosis Onset Date Resolution Status Family history of colon cancer acute FRANCO (generalized anxiety disorder) acute Migraine without aura and wi thout status migrainosus, not intractable acute Screening for colon cancer n oneactive Screening mammogram for breast cancer noneactive Wellness examination noneact lea [facility] Work Phone: History general Narrative - Reported* Type Description Date Medical History FRANCO (generalized anxiety disorde r) Medical History Contraception management Medical History Labile mood Medical History Family history of colon cancer Medical History Migraine without aur a and without status migrainosus, not intractable Medical History Primary insomnia Surgical History LEFT KNEE ARTHROSCOPY 2005 Surgical History COLONOSCOPY 2019 Hospitalization History SEE SURGICAL HX [facility] Other Summary Purpose Family History Relationship Condition Age at Onset Recorded Date/T brian father Family history of colon cancer Unknown Malignant neoplasm Unknown Not Specified Diabetes mellitus Unknown Relationship Condition Age at Onset Recorded Date/T brian father Family history of colon cancer Unknown Malignant neoplasm Unknown mother Diabetes mellitus Unknown Advance Directives Advance Directive Response Recorded Date/ Time Advance Directives No September 03, 2023 3:29pm Chief Complaint and Reason for Visit Chief Complaint Adipex Check Up Refill Amb Documentation 3 month follow up (LVM TO RESCHEDULE) Reason for Visit FRANCO (generalized anx iety disorder) Migraine without aura and without status migrainosus, not intractable Obesity Chief Complaint Wellness Reason for Visit Family history of co edwar cancer FRANCO (generalized anxiety disorder) Migraine without aura and without status migrainosus, not intractable Screening for colon cancer Screening mammogram for breast cancer Wellness examination Additional Source Comments INFORMATION SOURCE (unrecogn ized section and content) DATE CREATED AUTHOR 08/07/2022 [facility] DATE CREATED AUTHOR AUTHOR'S ORGANIZ ATION 01/27/2024 [facility] REASON FOR VISIT (unrecogniz ed section and content) WellnessMedicationLab Result sNo Informationadipex check inadipex 28 day check inrefillVirtual Appointment Tomorrowadipex 28 day check inrefillrefillNew Refill RequestRefillAdipex Check UpNo InformationNo Informationrefillrx refillPharmacy ChangeNo Information Care Teams (unrecognized sec tion and content) Team Status: Active Member Role Status Osmani Thompson DO Primary Care Provider Active Team Status: Inactive Member Role Status Osmani Thompson DO Attending Provider Active Sta rt: September 02, 2023 End: September 02, 2023 Team Status: Inactive Member Role Status Osmani Thompson DO Attending Provider Active Sta rt: September 07, 2023 End: September 07, 2023 Team Status: Active Member Role Status Osmani Thompson DO Primary Care Provider Active Start: October 05, [address] Attending Provider Active Start: Joie thakkar 2023 Team Status: Inactive Member Role Status Osmani Thompson DO Primary Care Provide r, Attending Provider Active Start: November 25, 2023 End: November 25, 2023 Team Status: Inactive Member Role Status Osmani Thompson DO Primary Care Provide r, Attending Provider Active Start: March 24, 2024 End: March 24, 2024 Goals (unrecognized section and content) Goals may be documented in a n alternate section FOR RECORDS PERTAINING TO PATIENTS WHO ARE OR HAVE BEEN ENROLLED IN A CHEMICAL DEPENDENCY/SUBSTANCEABUSE PROGRAM, SOME INFORMATION MAY BE OMITTED. This clinical summary was aggregated from multiple sources. Caution should be exercised in using it in the provision of clinical care. This summary normalizes information from multiple sources, and as a consequence, information in this document may materially change the coding, format and clinical context of patient data. In addition, data may be omitted in some cases. CLINICAL DECISIONS SHOULD BE BASED ON THE PRIMARY CLINICAL RECORDS. [facility] [employer] [facility]. provides no warranty or guarantee of the accuracy or completeness of information in this document.
[2024-04-06 10:30] LABS: Hematocrit 42.3 % (36.0-48.0); Hemoglobin 14.2 g/dL (12.0-16.0); Mean Corpuscular HGB Conc 33.6 g/dL (29.9-35.2); Mean Corpuscular Hemoglobin 30.5 pg (26.7-34.0); Mean Corpuscular Volume 90.8 fL (81.0-99.0); Mean Platelet Volume 10.2 fL (9.5-13.5); Platelet Count 322 10^3/uL (150-450); Red Blood Count 4.66 10^6/uL (4.20-5.40); Red Cell Distribution Width 12.6 % (11.0-15.0); White Blood Count 5.8 10^3/uL (4.0-11.0)
[2024-04-06 11:11] LABS: Alanine Aminotransferase 24 U/L (14-59); Albumin Globulin Ratio 0.9; Albumin Level 3.1 g/dL (3.4-5.0); Alkaline Phosphatase 55 U/L (46-116); Anion Gap 12.7; Aspartate Amino Transferase 13 U/L (15-37); BUN Creatinine Ratio 14.1; Bilirubin Total 0.3 mg/dL (0.2-1.0); Calcium 8.8 mg/dL (8.5-10.1); Carbon Dioxide 25.8 mmol/L (21.0-32.0); Chloride 104 mmol/L (98-107); Chol HDL Ratio 3.2; Cholesterol 185 mg/dL (<=200); Estimated GFR (African America >60 (>=60); Estimated GFR (Non-African Ame >60 (>=60); Globulin 3.6 g/dL; Glucose 84 mg/dL (74-106); HDL Cholesterol 57 mg/dL (40-60); Potassium 4.5 mmol/L (3.5-5.1); Sodium 138 mmol/L (136-145); Thyroid Stimulating Hormone 1.534 uIU/mL (0.358-3.740); Total Protein 6.7 g/dL (6.4-8.2); Triglycerides 65 mg/dL (<=150)
[2024-04-06 11:20] LABS: Estimated Average Glucose 97 mg/dL
[2024-04-06 12:19] LABS: Segmented Neut Absolute Manual 3.07 10^3/uL (1.4-6.5)
[2024-04-06 12:20] LABS: Eosinophils Absolute Manual 0.11 10^3/uL (0.00-0.70); Lymphocytes Absolute Manual 2.26 10^3/uL (1.20-3.80); Monocytes Absolute Manual 0.34 10^3/uL (0.30-0.80)
== END 2024-04-06 09:59 | disposition home or self-care (01) ==
LOC: LAB 09:58
PROVIDERS: PCP Internal Medicine; Visit Provider Internal Medicine
DX: Z00.00 Encounter for general adult medical examination without abnormal findings (principal)
CPT/HCPCS: 36415; 80053; 80061; 83036; 84443; 85007; 85027

== ENCOUNTER 2024-05-09 13:01 | Outpatient (OUT) | payer BC, SELFPAY ==
--- OUTSIDE RECORDS SUMMARY | 2024-05-09 13:21 | XMS_ITS | CCD ---
Author Organization [facility] Care Team Providers Care Panelboard Tank Pumper Name Role Phone KELVIN HEWITT Consulting Unavailable [...] (1 source) Shellfish Drug allergy (disorder) [facility] Repository (20 sources) Shellfish Drug allergy Comment:SHELLShelly SARY [facility] Other (1 source) Shellfish; Translations: [SHELLFISH DERIVED] [...] pill packs at one time. *Reorder from Oxxy for eRx and Interaction Alerts* May, Not-Taking/PRN Start: 05-25-2022 take 1 tablet by jairon th once daily Sprintec (28) 0.25-35mg-mcg Sprintec (28) 0.25-35mg-mcg, 1 (one) Tablet daily # 28, 05/25/2022, Ref. x11. Active oral daily for 28 Please dispense 3 pill packs at one time. *Reorder from Oxxy for eRx and Interaction Alerts* May, Not-Taking [...] 08-03-2022 EUA Statement SEE BELOW Normal [facility] Comment on above: Result Comment: [...] sooner. Performed By: #### C VDAGA #### [facility] [address] [place] [address] Dr. Lee Huang SARS-CoV-2 (COVID-19) RNA ISAIAH+probe Ql (Unsp spec) Negative Normal NEGATIVE [facility] Comment on above: Result Comment: Nega tive results are presumptive. They do not preclude infection and should not be used as the sole basis for treatment decisions. Additional confirmatory testing by a molecular method should be considered. Performed By: #### C VDAGA #### [facility] [address] [place] [address] Dr. Lee Huang Covid-19 PCR (CVDTB)on 07-11 SARS-CoV-2 (COVID-19) RNA ISAIAH+probe Ql (Unsp spec) Detected Critically abnormal NOT DETECTED [facility] Comment on above: Result Comment: This test is not yet approved or cleared by the [place] FDA. When there are no FDA-approved or cleared tests available, and other criteria are met, FDA can make tests available under an emergency access mechanism called an Emergency Use Authorization (EUA). The EUA for this test is supported by the [place] of Health and Human Service's declaration that [...] used). Performed By: #### C VDTBH #### [facility] [address] [place] [address] Dr. Lee Huang CBC AUTO DIFFon 10-16-2021 BASO # 0.1 103/ul Normal 0.0-0.1 [facility] Comment on above: Performed By: #### C BC #### [facility] [address] [place] [address] Dr. Lee Huang Basophils/100 WBC (Bld) 0.7 % Normal 0.2-2.0 [facility] Comment on above: Performed By: #### C BC #### [facility] [address] [place] [address] Dr. Lee Huang EO # 0.1 103/ul Normal 0.0-0.7 [facility] Comment on above: Performed By: #### C BC #### [facility] [address] [place] [address] Dr. Lee Huang Eosinophils/100 WBC (Bld) 2.0 % Normal 0.9-7.0 [facility] Comment on above: Performed By: #### C BC #### [facility] [address] [place] [address] Dr. Lee Huang Erythrocyte distribution width (RBC) [Ratio] 12.8 % Normal 11.0-15.0 [facility] Comment on above: Performed By: #### C BC #### [facility] [address] [place] [address] Dr. Lee Huang Hematocrit (Bld) [Volume fraction] 42.5 % Normal 36.0-48.0 [facility] Comment on above: Performed By: #### C BC #### [facility] [address] [place] [address] Dr. Lee Huang Hemoglobin (Bld) [Mass/Vol] 14.0 g/dL Normal 12.0-16.0 [facility] Comment on above: Performed By: #### C BC #### [facility] [address] [place] [address] Dr. Lee Huang IG # 0.02 10e3/ul Normal 0.00-0.03 [facility] Comment on above: Performed By: #### C BC #### [facility] [address] [place] [address] Dr. Lee Huang IG % 0.3 % Normal 0.0-0.5 [facility] Comment on above: Performed By: #### C BC #### [facility] [address] [place] [address] Dr. Lee Huang LYMPH # 2.0 103/ul Normal 1.2-3.8 [facility] Comment on above: Performed By: #### C BC #### [facility] [address] [place] [address] Dr. Lee Huang Lymphocytes/100 WBC (Bld) 28.2 % Normal 20.5-60.0 [facility] Comment on above: Performed By: #### C BC #### [facility] [address] [place] [address] Dr. Lee Huang MANUAL DIFF REQ NO Normal [facility] Comment on above: Performed By: #### C BC #### [facility] [address] [place] [address] Dr. Lee Huang MCH (RBC) [Entitic mass] 29.4 pg Normal 26.7-34.0 [facility] Comment on above: Performed By: #### C BC #### [facility] [address] [place] [address] Dr. Lee Huang MCHC (RBC) [Mass/Vol] 32.9 g/dL Normal 29.9-35.2 [facility] Comment on above: Performed By: #### C BC #### [facility] [address] [place] [address] Dr. Lee Huang MCV (RBC) [Entitic vol] 89.1 fL Normal 81.0-99.0 [facility] Comment on above: Performed By: #### C BC #### [facility] [address] [place] [address] Dr. Lee Huang MONO # 0.5 103/ul Normal 0.3-0.8 [facility] Comment on above: Performed By: #### C BC #### [facility] [address] [place] [address] Dr. Lee Huang Monocytes/100 WBC (Bld) 7.2 % Normal 1.7-12.0 [facility] Comment on above: Performed By: #### C BC #### [facility] [address] [place] [address] Dr. Lee Huang NEUT # 4.3 103/ul Normal 1.4-6.5 [facility] Comment on above: Performed By: #### C BC #### [facility] [address] [place] [address] Dr. Lee Huang Neutrophils/100 WBC (Bld) 61.6 % Normal 43.0-75.0 [facility] Comment on above: Performed By: #### C BC #### [facility] [address] [place] [address] Dr. Lee Huang Platelet mean volume (Bld) [Entitic vol] 9.8 fL Normal 9.5-13.5 [facility] Comment on above: Performed By: #### C BC #### [facility] [address] [place] [address] Dr. Lee Huang PLT 317 103/ul Normal 150-450 [facility] Comment on above: Performed By: #### C BC #### [facility] [address] [place] [address] Dr. Lee Huang RBC 4.77 106/ul Normal 4.20-5.40 [facility] Comment on above: Performed By: #### C BC #### [facility] [address] [place] [address] Dr. Lee Huang WBC 6.9 103/ul Normal 4.0-11.0 [facility] Comment on above: Performed By: #### C BC #### [facility] [address] [place] [address] Dr. Lee Huang GLYCOHEMOGLOBIN A1Con 2021 ADA RECOMMENDATION ADA THERAPEUTIC TARGET 6.0 - 7.0 ACTION SUGGESTED > 7.0 Normal [facility] Comment on above: Performed By: #### A 1C #### [facility] [address] [place] [address] Dr. Lee Huang Glucose [Mass/Vol] 108 mg/dL Normal [facility] Comment on above: Performed By: #### A 1C #### [facility] [address] [address] [address] Lee Huang HbA1c (Bld) [Mass fraction] 5.4 % Normal <=6.0 [facility] Comment on above: Performed By: #### A 1C #### [facility] [address] [address] [address] Lee Huang LIPID PROFILEon 10-16-2021 CHOL-HDL RATIO NORM SEE BELOW Normal [facility] Comment on above: Result Comment: 3.3 - 4.4 LOW RISK 4.4 - 7.1 AVERAGE RISK 7.1 - 11.0 MODERATE RISK >11.0 HIGH RISK Performed By: #### C MP, LIPID, TSH #### [facility] [address] [address] [address] Lee Huang Cholesterol [Mass/Vol] 193 mg/dL Normal <=200 [facility] Comment on above: Performed By: #### C MP, LIPID, TSH #### [facility] [address] [address] [address] Lee Huang Cholesterol in HDL [Mass/Vol] 56 mg/dL Normal [facility] Comment on above: Performed By: #### C MP, LIPID, TSH #### [facility] [address] [address] [address] Lee Huang Cholesterol in LDL [Mass/Vol] 116.6 mg/dL Normal [facility] Comment on above: Performed By: #### C MP, LIPID, TSH #### [facility] [address] [place] [address] Dr. Lee Huang Cholesterol.total/Ch olesterol in HDL [Mass ratio] 3.4 {ratio} Normal [facility] Comment on above: Performed By: #### C MP, LIPID, TSH #### [facility] [address] [place] [address] Dr. Lee Huang HDL NORMAL > or = 60 mg/dl - LOW CARDIOVASCULAR RISK <40 mg/dl - HIGH CARDIOVASCULAR RISK Normal [facility] Comment on above: Performed By: #### C MP, LIPID, TSH #### [facility] [address] [address] [address] Lee Huang LDL CALC NORMAL SEE BELOW Normal [facility] Comment on above: Result Comment: <100 mg/dl OPTIMAL 100 - 129 mg/dl NEAR OR ABOVE OPTIMAL 130 - 159 mg/dl BORDERLINE HIGH 160 - 189 mg/dl HIGH >190 mg/dl VERY HIGH Performed By: #### C MP, LIPID, TSH #### [facility] [address] [address] [address] Lee Huang Triglyceride [Mass/Vol] 102 mg/dL Normal <=150 [facility] Comment on above: Performed By: #### C MP, LIPID, TSH #### [facility] [address] [place] [address] Dr. Lee Huang VLDL CALC 20.4 mg/dL Normal [facility] Comment on above: Performed By: #### C MP, LIPID, TSH #### [facility] [address] [place] [address] Dr. Lee Huang PROF 14(COMP METB)on 022 Albumin [Mass/Vol] 3.3 g/dL Critically low 3.5-5.0 [facility] Comment on above: Performed By: #### C MP, LIPID, TSH #### [facility] [address] [place] [address] Dr. Lee Huang Albumin/Globulin [Mass ratio] 0.9 {ratio} Normal [facility] Comment on above: Performed By: #### C MP, LIPID, TSH #### [facility] [address] [place] [address] Dr. Lee Huang ALP [Catalytic activity/Vol] 61 U/L Normal 38-126 [facility] Comment on above: Performed By: #### C MP, LIPID, TSH #### [facility] [address] [place] [address] Dr. Lee Huang ALT [Catalytic activity/Vol] 29 U/L Normal 9-52 [facility] Comment on above: Performed By: #### C MP, LIPID, TSH #### [facility] [address] [place] [address] Dr. Lee Huang Anion gap [Moles/Vol] 11.6 mmol/L Normal [facility] Comment on above: Performed By: #### C MP, LIPID, TSH #### [facility] [address] [address] [address] Lee Huang AST [Catalytic activity/Vol] 13 U/L Critically low 14-36 [facility] Comment on above: Performed By: #### C MP, LIPID, TSH #### [facility] [address] [address] [address] Lee Huang Bilirubin [Mass/Vol] 0.4 mg/dL Normal 0.2-1.3 [facility] Comment on above: Performed By: #### C MP, LIPID, TSH #### [facility] [address] [place] [address] Dr. Lee Huang Calcium [Mass/Vol] 8.4 mg/dL Normal 8.4-10.[address] [facility] Comment on above: Performed By: #### C MP, LIPID, TSH #### [facility] [address] [place] [address] Dr. Lee Huang Chloride [Moles/Vol] 105 mmol/L Normal 98-107 [facility] Comment on above: Performed By: #### C MP, LIPID, TSH #### [facility] [address] [place] [address] Dr. Lee Huang CO2 [Moles/Vol] 26.3 mmol/L Normal 22.0-30.0 [facility] Comment on above: Performed By: #### C MP, LIPID, TSH #### [facility] [address] [place] [address] Dr. Lee Huang Creatinine [Mass/Vol] 0.84 mg/dL Normal 0.52-1.04 [facility] Comment on above: Performed By: #### C MP, LIPID, TSH #### [facility] [address] [place] [address] Dr. Lee Huang EGFR-AF EQUATORIAL GUINEAN >60 Normal >=60 [facility] Comment on above: Performed By: #### C MP, LIPID, TSH #### [facility] [address] [address] [address] Lee Huang EGFR-NON AF EQUATORIAL GUINEAN >60 Normal >=60 [facility] Comment on above: Performed By: #### C MP, LIPID, TSH #### [facility] [address] [place] [address] Dr. Lee Huang Globulin (S) [Mass/Vol] 3.8 g/dL Normal [facility] Comment on above: Performed By: #### C MP, LIPID, TSH #### [facility] [address] [place] [address] Dr. Lee Huang Glucose [Mass/Vol] 87 mg/dL Normal 74-[address] [facility] Comment on above: Performed By: #### C MP, LIPID, TSH #### [facility] [address] [place] [address] Dr. Lee Huang Potassium [Moles/Vol] 3.9 mmol/L Normal 3.4-5.0 [facility] Comment on above: Performed By: #### C MP, LIPID, TSH #### [facility] [address] [place] [address] Dr. Lee Huang Protein [Mass/Vol] 7.1 g/dL Normal 6.1-8.[address] [facility] Comment on above: Performed By: #### C MP, LIPID, TSH #### [facility] [address] [place] [address] Dr. Lee Huang Sodium [Moles/Vol] 139 mmol/L Normal 137-[address] [facility] Comment on above: Performed By: #### C MP, LIPID, TSH #### [facility] [address] [place] [address] Dr. Lee Huang Urea nitrogen [Mass/Vol] 15.0 mg/dL Normal 7.0-17.0 [facility] Comment on above: Performed By: #### C MP, LIPID, TSH #### [facility] [address] [place] [address] Dr. Lee Huang Urea nitrogen/Creatinine [Mass ratio] 17.9 mg/mg Normal [facility] Comment on above: Performed By: #### C MP, LIPID, TSH #### [facility] [address] [place], [place] [address] Dr. Lee Huang TSHon 10-16-2021 TSH 1.331 uIU/mL Normal 0.470-4.680 [facility] Comment on above: Performed By: #### C MP, LIPID, TSH #### [facility] [address] [place], [place] [address] Dr. Lee Huang TSH RANGE SEE BELOW Normal [facility] Comment on above: Result Comment: <0.3 4 UIU/ml HYPERTHYROID 0.34-5.60 UIU/ml EUTHYROID >5.60 UIU/ml HYPOTHYROID Performed By: #### C MP, LIPID, TSH #### [facility] [address] [address] [address] Lee Huang Vital Signs Date Time Vital Sign Value Performing Clinician Facility 03-24-2024 11:31-0400 Body height 163.83 cm [facility] 03-24-2024 11:31-0400 Body mass index (BMI) [Ratio] 32.3 kg/m2 [facility] 03-24-2024 11:31-0400 Body weight 86.8 kg [facility] 03-24-2024 11:31-0400 Diastolic blood pressure 87 mm[Hg] [facility] 03-24-2024 11:31-0400 Heart rate 82 /min [facility] 03-24-2024 11:31-0400 Respiratory rate 12 /min [facility] 03-24-2024 11:31-0400 Systolic blood pressure 129 mm[Hg] [facility] 11-25-2023 10:05-0400 Body height 163.83 cm [facility] 11-25-2023 10:05-0400 Body mass index (BMI) [Ratio] 34.7 kg/m2 [facility] 11-25-2023 10:05-0400 Body weight 93.21 kg [facility] 11-25-2023 10:05-0400 Diastolic blood pressure 98 mm[Hg] [facility] 11-25-2023 10:05-0400 Heart rate 67 /min [facility] 11-25-2023 10:05-0400 Respiratory rate 12 /min [facility] 11-25-2023 10:05-0400 Systolic blood pressure 137 mm[Hg] [facility] 10-05-2023 21:45-0500 Body height 163.83 cm Gonzalez Ball Other [facility] Other 09-07-2023 08:57-0500 Body height 163.83 cm Gonzalez Ball Other [facility] 09-07-2023 08:57-0500 Body mass index (BMI) [Ratio] 37.72 kg/m2 Gonzalez Ball Other [facility] Other 09-07-2023 08:57-0500 Body weight 101.24 kg Gonzalez Ball Other [facility] 09-07-2023 08:57-0500 Diastolic blood pressure 89 mm[Hg] Gonzaelz Ball Other [facility] 09-07-2023 08:57-0500 Systolic blood pressure 135 mm[Hg] Gnozalez Ball Other [facility] 09-02-2023 14:30-0500 Body height 163.83 cm Gonzalez Ball Other [facility] 09-02-2023 14:30-0500 Body mass index (BMI) [Ratio] 37.72 kg/m2 Gonzalez Ball Other [facility] Other 09-02-2023 14:30-0500 Body weight 101.24 kg Gonzalez Ball Other [facility] 09-02-2023 14:30-0500 Diastolic blood pressure 89 mm[Hg] Gonzalez Ball Other [facility] 09-02-2023 14:30-0500 Respiratory rate 12 /min Gonzalez Ball Other [facility] Other 09-02-2023 14:30-0500 Systolic blood pressure 135 mm[Hg] Gonzalez Ball Other [facility] 07-31-2023 08:31-0500 Body height 163.83 cm Gonzalez Ball Other [facility] Other 07-31-2023 08:31-0500 Body mass index (BMI) [Ratio] 38.22 kg/m2 Gonzalez Ball Other [facility] Other 07-31-2023 08:31-0500 Body weight 102.6 kg Gonzalez Ball Other [facility] Other 07-31-2023 08:31-0500 Diastolic blood pressure 74 mm[Hg] Gonzalez Ball Other [facility] Other 07-31-2023 08:31-0500 Systolic blood pressure 126 mm[Hg] Gonzalez Ball Other [facility] Other 06-23-2023 08:24-0500 Body height 163.83 cm Gonzalez Ball Other [facility] Other 06-23-2023 08:24-0500 Body mass index (BMI) [Ratio] 38.36 kg/m2 Gonzalez Ball Other [facility] Other 06-23-2023 08:24-0500 Body weight 102.97 kg Gonzalez Ball Other [facility] Other 06-23-2023 08:24-0500 Diastolic blood pressure 76 mm[Hg] Gonzalez Ball Other [facility] Other 06-23-2023 08:24-0500 Systolic blood pressure 124 mm[Hg] Gonzalez Ball Other [facility] Other 06-11-2023 09:43-0400 Body height 163.83 cm Gonzalez Ball Other [facility] Other 05-21-2023 08:43-0400 Body height 163.83 cm Gonzalez Ball Other [facility] Other 05-15-2023 12:00-0400 Body height 163.83 cm Gonzalez Ball Other [facility] Other 05-15-2023 12:00-0400 Body mass index (BMI) [Ratio] 38.7 kg/m2 Gonzalez Ball Other [facility] Other 05-15-2023 12:00-0400 Body weight 103.87 kg Gonzalez Ball Other [facility] Other 05-15-2023 12:00-0400 Diastolic blood pressure 76 mm[Hg] Gonzalez Ball Other [facility] Other 05-15-2023 12:00-0400 Systolic blood pressure 126 mm[Hg] Gonzalez Ball Other [facility] Other 04-17-2023 12:00-0400 Body height 163.83 cm Gonzalez Ball Other [facility] Other 04-17-2023 12:00-0400 Body mass index (BMI) [Ratio] 39.54 kg/m2 Gonzalez Ball Other [facility] Other 04-17-2023 12:00-0400 Body weight 106.14 kg Gonzalez Ball Other [facility] Other 04-17-2023 12:00-0400 Diastolic blood pressure 80 mm[Hg] Gonzalez Ball Other [facility] Other 04-17-2023 12:00-0400 Systolic blood pressure 130 mm[Hg] Gonzalez Flumes Other [facility] Other 03-20-2023 09:30-0400 Body height 163.83 cm Gonzalez Flumes Other [facility] Other 03-20-2023 09:30-0400 Body mass index (BMI) [Ratio] 40.56 kg/m2 Gonzalez Flumes Other [facility] Other 03-20-2023 09:30-0400 Body weight 108.86 kg Gonzalez Flumes Other [facility] Other 03-20-2023 09:30-0400 Diastolic blood pressure 90 mm[Hg] Gonzalez Flumes Other [facility] Other 03-20-2023 09:30-0400 Respiratory rate 12 /min Gonzalez Flumes Other [facility] Other 03-20-2023 09:30-0400 Systolic blood pressure 124 mm[Hg] Gonzalez Flumes Other [facility] Other Encounters Encounter Date Encounter Type Care Provider Facility Start: 03-24-2024 End: 03-24-2024 ambulatory [facility] Work Phone: Start: 03-24-2024 End: 03-24-2024 Encounter for general adult medical examination without abnormal findings [facility] Start: 03-24-2024 End: 03-24-2024 Patient encounter procedure [facility] Work Phone: Start: 01-26-2024 End: 01-26-2024 ambulatory [facility] Start: 11-25-2023 End: 11-25-2023 ambulatory [facility] Work Phone: Start: 11-25-2023 End: 11-25-2023 Patient encounter procedure [facility] Work Phone: Start: 10-05-2023 End: 10-05-2023 ambulatory Gonzalez Thompson Other [facility] Other Start: 10-05-2023 Telephone encounter Gonzalez Thompson [facility] Start: 10-05-2023 Non-patient / Non-visit 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 Work Phone: [facility] Start: 09-07-2023 End: 09-07-2023 ambulatory Gonzalez Thompson Other [facility] Other Start: 09-07-2023 Telephone encounter Gonzalez Thompson [facility] Start: 09-07-2023 End: 09-07-2023 Patient encounter procedure [facility]- Start: 09-06-2023 End: 09-06-2023 ambulatory Gonzalez Thompson Other [facility] Other Start: 09-06-2023 Telephone encounter Gonzalez Thompson [facility] Start: 09-04-2023 End: 09-04-2023 ambulatory Gonzalez Thompson Other [facility] Other Start: 09-04-2023 Encounter by compute r francis Gonzalez Thompson [facility] Start: 09-02-2023 End: 09-02-2023 ambulatory Gonzalez Thompson Other [facility] Other Start: 09-02-2023 Office outpatient vi sit 15 minutes Gonzalez Thompson [facility] Start: 09-02-2023 End: 09-02-2023 Patient encounter procedure [facility]- Start: 08-05-2023 End: 08-05-2023 ambulatory Gonzalez Thompson Other [facility] Other Start: 08-05-2023 Telephone encounter Gonzalez Ball FP [facility] Start: 08-04-2023 End: 08-04-2023 ambulatory Gonzalez Ball Other [facility] Other Start: 08-04-2023 Encounter by montana blanco Gonzalez Ball [facility] Start: 07-31-2023 End: 07-31-2023 ambulatory Gonzalez Ball Other [facility] Other Start: 07-31-2023 Telephone encounter Gonzalez Ball [facility] Start: 06-23-2023 End: 06-23-2023 ambulatory Gonzalez Ball Other [facility] Other Start: 06-23-2023 Telephone encounter Gonzalez Ball [facility] Start: 06-11-2023 End: 06-11-2023 ambulatory Gonzalez Ball Other [facility] Other Start: 06-11-2023 Telephone encounter Gonzalez Ball [facility] Start: 05-21-2023 End: 05-21-2023 ambulatory Gonzalez Ball Other [facility] Other Start: 05-21-2023 Telephone encounter Gonzalez Ball [facility] Start: 05-15-2023 End: 05-15-2023 ambulatory Gonzalez Ball Other [facility] Other Start: 05-15-2023 Office outpatient vi sit 15 minutes Gonzalez Ball [facility] Start: 04-17-2023 End: 04-17-2023 ambulatory Gonzalez Ball Other [facility] Other Start: 04-17-2023 Office outpatient vi sit 15 minutes Gonzalez Ball [facility] Start: 04-16-2023 End: 04-16-2023 ambulatory Gonzalez Ball Other [facility] Other Start: 04-16-2023 Telephone encounter Gonzalez Thompson [facility] Start: 03-31-2023 End: 03-31-2023 ambulatory Gonzalez Thompson Other [facility] Other Start: 03-31-2023 Telephone encounter Gonzalez Thompson [facility] Start: 03-24-2023 End: 03-24-2023 ambulatory Gonzalez Thompson Other [facility] Other Start: 03-24-2023 Telephone encounter Gonzalez Thompson [facility] Start: 03-20-2023 End: 03-20-2023 ambulatory Gonzalez Thompson Other [facility] Other Start: 03-20-2023 Encounter for genera l adult medical examination without abnormal findings Gonzalez Thompson [facility] Start: 03-20-2023 Periodic preventive med est patient 40-64yrs Gonzalez Thompson [facility] Start: 08-03-2022 End: 08-03-2022 ambulatory KELVIN HEWITT Facility:[facility] Start: 07-29-2022 End: 07-29-2022 ambulatory KELVIN HEWITT Facility:[facility] Start: 10-17-2021 Encounter for genera l adult medical examination without abnormal findings DR GONZALEZ THOMPSON [facility] Start: 10-16-2021 Adult health examination Frank Thompson Other [facility] Other Start: 10-16-2021 End: 10-17-[address] GONZALEZ THOMPSON Facility:[facility] Start: 10-16-2021 End: 10-17-2021 Encounter for general adult medical examination without abnormal findings DR GONZALEZ THOMPSON Facility:[facility] Start: 01-19-2020 Gynecological examin ation normal Gonzalez Thompson Other [facility] Other Procedures Date Procedure Procedure Detail Performing Clinician Depression screening Chriss Thompson Other Screening for malign ant neoplasm of breast Gonzalez Thompson Other Plan of Treatment Date Care Activity Detail Author Start: 10-13-2023 End: 10-13-2023 Patient encounter procedure 10/13/2023 2:40 PM EST Office Visit [facility] [address] [place] [id number] Whitney Loza APRN-DESIGN ENGINEERING SPECIALIST [address] [place] [address] [facility] Comprehensive metabo lic 2000 panel - Serum or Plasma [facility] Payers Date Payer Category Payer Blue Cross Blue [facility] [id number] 2019 Unknown [id number] 1978 Unknown [id number] 1978 Unknown [id number] [id number] 1978 Unknown [id number] [id number] [id number] 1978 Unknown [id number] [id number] Unknown [id number] Social History Date Type Detail Facility Sex Assigned At [email or web address] [facility] Other Start: 09-18-2023 Tobacco smoking stat [facility] Never smoked tobacco [facility] Start: 1980 Sex Assigned At Not on file N [facility] Start: 1980 Sex Assigned At Female F [facility] Clinical Notes 03-20-2023 to 09-07-2023 Note Date & Type Note Facility 09-07-2023 Evaluation note Encounter Date Diagnosis Assessment Notes Aug, Morbid (severe) obesity due to excess calories (ICD-10 - E66.01) [facility] Other 01-28-2024 Evaluation note* Encounter Date Diagnosis Assessment Notes Treatment Notes Treatment Clinical Notes Aug, Morbid (severe) obesity due to excess calories (ICD-10 - E66.01) [facility] Other 01-24-2024 Evaluation note* Encounter Date Diagnosis [...] exercise for 30 minutes, 3-5 times weekly. [facility] Other 12-27-2023 Evaluation note* Encounter Date Diagnosis Assessment Notes Treatment Notes Treatment Clinical Notes Jul, Other obesity due to excess calories (ICD-10 - E66.09) [facility] Other 12-22-2023 Evaluation note* Encounter Date Diagnosis Assessment Notes Treatment Notes Treatment Clinical Notes Jul, Other obesity due to excess calories (ICD-10 - E66.09) [facility] Other 11-14-2023 Evaluation note* Encounter Date Diagnosis Assessment Notes Treatment Notes Treatment Clinical Notes Jun, Other obesity due to excess calories (ICD-10 - E66.09) [facility] Other 10-12-2023 Evaluation note* Encounter Date Diagnosis Assessment Notes Treatment Notes Treatment Clinical Notes May, Other obesity due to excess calories (ICD-10 - E66.09) [facility] Other 10-06-2023 Evaluation note* Encounter Date Diagnosis [...] diet, exercise No adverse effects from Adipex [facility] Other 10-06-2023 Evaluation note* Encounter Date Diagnosis [...] index [BMI] 38.0-38.9, adult (ICD-10 - Z68.38) [facility] Other 09-08-2023 Evaluation note* Encounter Date Diagnosis [...] index [BMI] 39.0-39.9, adult (ICD-10 - Z68.39) [facility] Other 08-15-2023 Evaluation note* Encounter Date Diagnosis Assessment Notes Treatment Notes Treatment Clinical Notes Mar, Morbid (severe) obesity due to excess calories (ICD-10 - E66.01) [facility] Other 08-11-2023 Evaluation note* Encounter Date Diagnosis [...] mammogram for breast cancer (ICD-10 - Z12.31) [facility] Other Evaluation noteNo InformationNort [facility] Other Evaluation note* Diagnosis Onset Date Resolution Status FRANCO (generalized anxiety disorder) acute Migraine without aura and wi thout status migrainosus, not intractable acute Obesity acute [facility] Work Phone: Evaluation note* Diagnosis Onset Date Resolution Status Family history of colon cancer acute FRANCO (generalized anxiety disorder) acute Migraine without aura and wi thout status migrainosus, not intractable acute Screening for colon cancer n oneactive Screening mammogram for breast cancer noneactive Wellness examination noneact lea [facility] Work Phone: History general Narrative - [...] COLONOSCOPY 2019 Hospitalization History SEE SURGICAL HX [facility] Other Summary Purpose Family History Relationship Condition [...] up (LVM TO RESCHEDULE) Reason for Visit FARNCO (generalized anx iety disorder) Migraine without aura [...] BE BASED ON THE PRIMARY CLINICAL RECORDS. [facility]. provides no warranty or guarantee of the accuracy or completeness of information in this document.
== END 2024-05-09 13:02 | disposition home or self-care (01) ==
LOC: PST 13:01
PROVIDERS: PCP Internal Medicine; Visit Provider Surgery
DX: Z01.818 Encounter for other preprocedural examination (principal); Z12.11 Encounter for screening for malignant neoplasm of colon; Z80.0 Family history of malignant neoplasm of digestive organs

== ENCOUNTER 2024-05-11 07:13 | Day surgery (SDC) | payer BC, SELFPAY ==
--- NOTE | 2024-05-11 07:16 | P.GSPRC_ITS ---
Date of procedure: 05/11/24 Indications for Procedure: Screening for cancer; Family history of colon cancer in father Pre-op diagnosis: Screening for cancer; family history of colon cancer in father Post-op diagnosis: other (Diverticulosis minimal sigmoid colon) Procedure: colonoscopy Findings: Single diverticulum sigmoid colon small Anesthesia: MAC Surgeon: Felton Hdez Procedure Summary: PROCEDURE: The patient was taken to the Endoscopy Suite, placed in the left lateral recumbent position, given IV sedation as above. A rectal digital exam was performed. The sphincter tone was found to be normal. No rectal masses were appreciated. The Olympus video colonoscope was advanced under direct visualization to the rectum, sigmoid colon, descending colon, transverse colon and ascending colon to the ileocecal valve. The underside of the valve was seen. Appendiceal lumen was visualized. The scope was slowly withdrawn with air being desufflated as it was withdrawn. No gross tumors or polyps were seen. There was a single diverticulum in the sigmoid colon seen. The patient tolera jayne the procedure well and went to the Recovery Area in satisfactory condition. I recommend the patient follow a high-fiber diet for the rest of her life and repeat a colonoscopy in 5 years due to family history of colon cancer in a first-degree relative her father. Estimated blood loss (mL): 0 Complications: No Pathology: none sent Condition: stable Disposition: PACU
--- OUTSIDE RECORDS SUMMARY | 2024-05-11 07:16 | XMS_ITS | CCD ---
Author Organization [facility] Care Team Providers Care Ultrasound Tester Name Role Phone KELVIN HEWITT Consulting Unavailable [...] source) Shellfish Drug allergy (disorder) [facility] (20 sources) Shellfish Drug allergy Comment:SHELLShelly SARY [facility] Other (1 source) Shellfish; Translations: [SHELLFISH DERIVED] [...] pill packs at one time. *Reorder from Epuramat for eRx and Interaction Alerts* May, Not-Taking/PRN Start: 05-25-2022 take 1 tablet by jairon th once daily Sprintec (28) 0.25-35mg-mcg Sprintec (28) 0.25-35mg-mcg, 1 (one) Tablet daily # 28, 05/25/2022, Ref. x11. Active oral daily for 28 Please dispense 3 pill packs at one time. *Reorder from Epuramat for eRx and Interaction Alerts* May, Not-Taking [...] 08-03-2022 EUA Statement SEE BELOW Normal [facility] Comment on above: Result Comment: This [...] Performed By: #### C VDAGA #### [facility] [address] [place] [address] Dr. Lee Huang SARS-CoV-2 (COVID-19) RNA ISAIAH+probe Ql (Unsp spec) Negative Normal NEGATIVE [facility] Comment on above: Result Comment: Nega tive results are presumptive. They do not preclude infection and should not be used as the sole basis for treatment decisions. Additional confirmatory testing by a molecular method should be considered. Performed By: #### C VDAGA #### [facility] [address] [place] [address] Dr. Lee Huang Covid-19 PCR (CVDTB)on 07-11 SARS-CoV-2 (COVID-19) RNA ISAIAH+probe Ql (Unsp spec) Detected Critically abnormal NOT DETECTED [facility] Comment on above: Result Comment: This test is not yet approved or cleared by the [place] FDA. When there are no FDA-approved or cleared tests available, and other criteria are met, FDA can make tests available under an emergency access mechanism called an Emergency Use Authorization (EUA). The EUA for this test is supported by the Telecasting Technician of Health and Human Service's declaration that [...] Performed By: #### C VDTBH #### [facility] [address] [place] [address] Dr. Lee Huang CBC AUTO DIFFon 10-16-2021 BASO # 0.1 103/ul Normal 0.0-0.1 [facility] Comment on above: Performed By: #### C BC #### [facility] [address] [place] [address] Dr. Lee Huang Basophils/100 WBC (Bld) 0.7 % Normal 0.2-2.0 [facility] Comment on above: Performed By: #### C BC #### [facility] [address] [place] [address] Dr. Lee Huang EO # 0.1 103/ul Normal 0.0-0.7 [facility] Comment on above: Performed By: #### C BC #### [facility] [address] [place] [address] Dr. Lee Huang Eosinophils/100 WBC (Bld) 2.0 % Normal 0.9-7.0 [facility] Comment on above: Performed By: #### C BC #### [facility] [address] [place] [address] Dr. Lee Huang Erythrocyte distribution width (RBC) [Ratio] 12.8 % Normal 11.0-15.0 [facility] Comment on above: Performed By: #### C BC #### [facility] [address] [place] [address] Dr. Lee Huang Hematocrit (Bld) [Volume fraction] 42.5 % Normal 36.0-48.0 [facility] Comment on above: Performed By: #### C BC #### [facility] [address] [place] [address] Dr. Lee Huang Hemoglobin (Bld) [Mass/Vol] 14.0 g/dL Normal 12.0-16.0 [facility] Comment on above: Performed By: #### C BC #### [facility] [address] [place] [address] Dr. Lee Huang IG # 0.02 10e3/ul Normal 0.00-0.03 [facility] Comment on above: Performed By: #### C BC #### [facility] [address] [place] [address] Dr. Lee Huang IG % 0.3 % Normal 0.0-0.5 [facility] Comment on above: Performed By: #### C BC #### [facility] [address] [place] [address] Dr. Lee Huang LYMPH # 2.0 103/ul Normal 1.2-3.8 [facility] Comment on above: Performed By: #### C BC #### [facility] [address] [place] [address] Dr. Lee Huang Lymphocytes/100 WBC (Bld) 28.2 % Normal 20.5-60.0 [facility] Comment on above: Performed By: #### C BC #### [facility] [address] [place] [address] Dr. Lee Huang MANUAL DIFF REQ NO Normal [facility] Comment on above: Performed By: #### C BC #### [facility] [address] [place] [address] Dr. Lee Huang MCH (RBC) [Entitic mass] 29.4 pg Normal 26.7-34.0 [facility] Comment on above: Performed By: #### C BC #### [facility] [address] [place] [address] Dr. Lee Huang MCHC (RBC) [Mass/Vol] 32.9 g/dL Normal 29.9-35.2 [facility] Comment on above: Performed By: #### C BC #### [facility] [address] [place] [address] Dr. Lee Huang MCV (RBC) [Entitic vol] 89.1 fL Normal 81.0-99.0 [facility] Comment on above: Performed By: #### C BC #### [facility] [address] [place] [address] Dr. Lee Huang MONO # 0.5 103/ul Normal 0.3-0.8 [facility] Comment on above: Performed By: #### C BC #### [facility] [address] [place] [address] Dr. Lee Huang Monocytes/100 WBC (Bld) 7.2 % Normal 1.7-12.0 [facility] Comment on above: Performed By: #### C BC #### [facility] [address] [place] [address] Dr. Lee Huang NEUT # 4.3 103/ul Normal 1.4-6.5 [facility] Comment on above: Performed By: #### C BC #### [facility] [address] [place] [address] Dr. Lee Huang Neutrophils/100 WBC (Bld) 61.6 % Normal 43.0-75.0 [facility] Comment on above: Performed By: #### C BC #### [facility] [address] [place] [address] Dr. Lee Huang Platelet mean volume (Bld) [Entitic vol] 9.8 fL Normal 9.5-13.5 [facility] Comment on above: Performed By: #### C BC #### [facility] [address] [place] [address] Dr. Lee Huang PLT 317 103/ul Normal 150-450 [facility] Comment on above: Performed By: #### C BC #### [facility] [address] [place] [address] Dr. Lee Huang RBC 4.77 106/ul Normal 4.20-5.40 [facility] Comment on above: Performed By: #### C BC #### [facility] [address] [place] [address] Dr. Lee Huang WBC 6.9 103/ul Normal 4.0-11.0 [facility] Comment on above: Performed By: #### C BC #### [facility] [address] [place] [address] Dr. Lee Huang GLYCOHEMOGLOBIN A1Con 2021 ADA RECOMMENDATION ADA THERAPEUTIC TARGET 6.0 - 7.0 ACTION SUGGESTED > 7.0 Normal [facility] Comment on above: Performed By: #### A 1C #### [facility] [address] [place] [address] Dr. Lee Huang Glucose [Mass/Vol] 108 mg/dL Normal [facility] Comment on above: Performed By: #### A 1C #### [facility] [address] [address] [address] Lee Huang HbA1c (Bld) [Mass fraction] 5.4 % Normal <=6.0 [facility] Comment on above: Performed By: #### A 1C #### [facility] [address] [address] [address] Lee Huang LIPID PROFILEon 10-16-2021 CHOL-HDL RATIO NORM SEE BELOW Normal [facility] Comment on above: Result Comment: 3.3 - 4.4 LOW RISK 4.4 - 7.1 AVERAGE RISK 7.1 - 11.0 MODERATE RISK >11.0 HIGH RISK Performed By: #### C MP, LIPID, TSH #### [facility] [address] [address] [address] Lee Huang Cholesterol [Mass/Vol] 193 mg/dL Normal <=200 [facility] Comment on above: Performed By: #### C MP, LIPID, TSH #### [facility] [address] [address] [address] Lee Huang Cholesterol in HDL [Mass/Vol] 56 mg/dL Normal [facility] Comment on above: Performed By: #### C MP, LIPID, TSH #### [facility] [address] [address] [address] Lee Huang Cholesterol in LDL [Mass/Vol] 116.6 mg/dL Normal [facility] Comment on above: Performed By: #### C MP, LIPID, TSH #### [facility] [address] [place] [address] Dr. Lee Huang Cholesterol.total/Ch olesterol in HDL [Mass ratio] 3.4 {ratio} Normal [facility] Comment on above: Performed By: #### C MP, LIPID, TSH #### [facility] [address] [place] [address] Dr. Lee Huang HDL NORMAL > or = 60 mg/dl - LOW CARDIOVASCULAR RISK <40 mg/dl - HIGH CARDIOVASCULAR RISK Normal [facility] Comment on above: Performed By: #### C MP, LIPID, TSH #### [facility] [address] [address] [address] Lee Huang LDL CALC NORMAL SEE BELOW Normal [facility] Comment on above: Result Comment: <100 mg/dl OPTIMAL 100 - 129 mg/dl NEAR OR ABOVE OPTIMAL 130 - 159 mg/dl BORDERLINE HIGH 160 - 189 mg/dl HIGH >190 mg/dl VERY HIGH Performed By: #### C MP, LIPID, TSH #### [facility] [address] [address] [address] Lee Huang Triglyceride [Mass/Vol] 102 mg/dL Normal <=150 [facility] Comment on above: Performed By: #### C MP, LIPID, TSH #### [facility] [address] [place] [address] Dr. Lee Huang VLDL CALC 20.4 mg/dL Normal [facility] Comment on above: Performed By: #### C MP, LIPID, TSH #### [facility] [address] [place] [address] Dr. Lee Huang PROF 14(COMP METB)on 022 Albumin [Mass/Vol] 3.3 g/dL Critically low 3.5-5.0 [facility] Comment on above: Performed By: #### C MP, LIPID, TSH #### [facility] [address] [place] [address] Dr. Lee Huang Albumin/Globulin [Mass ratio] 0.9 {ratio} Normal [facility] Comment on above: Performed By: #### C MP, LIPID, TSH #### [facility] [address] [place] [address] Dr. Lee Huang ALP [Catalytic activity/Vol] 61 U/L Normal 38-126 [facility] Comment on above: Performed By: #### C MP, LIPID, TSH #### [facility] [address] [place] [address] Dr. Lee Huang ALT [Catalytic activity/Vol] 29 U/L Normal 9-52 [facility] Comment on above: Performed By: #### C MP, LIPID, TSH #### [facility] [address] [place] [address] Dr. Lee Huang Anion gap [Moles/Vol] 11.6 mmol/L Normal [facility] Comment on above: Performed By: #### C MP, LIPID, TSH #### [facility] [address] [address] [address] Lee Huang AST [Catalytic activity/Vol] 13 U/L Critically low 14-36 [facility] Comment on above: Performed By: #### C MP, LIPID, TSH #### [facility] [address] [address] [address] Lee Huang Bilirubin [Mass/Vol] 0.4 mg/dL Normal 0.2-1.3 [facility] Comment on above: Performed By: #### C MP, LIPID, TSH #### [facility] [address] [place] [address] Dr. Lee Huang Calcium [Mass/Vol] 8.4 mg/dL Normal 8.4-10.2 [facility] Comment on above: Performed By: #### C MP, LIPID, TSH #### [facility] [address] [place] [address] Dr. Lee Huang Chloride [Moles/Vol] 105 mmol/L Normal 98-107 [facility] Comment on above: Performed By: #### C MP, LIPID, TSH #### [facility] [address] [place] [address] Dr. Lee Huang CO2 [Moles/Vol] 26.3 mmol/L Normal 22.0-30.0 [facility] Comment on above: Performed By: #### C MP, LIPID, TSH #### [facility] [address] [place] [address] Dr. Lee Huang Creatinine [Mass/Vol] 0.84 mg/dL Normal 0.52-1.04 [facility] Comment on above: Performed By: #### C MP, LIPID, TSH #### [facility] [address] [place] [address] Dr. Lee Huang EGFR-AF PRYDEINIG >60 Normal >=60 [facility] Comment on above: Performed By: #### C MP, LIPID, TSH #### [facility] [address] [address] [address] Lee Huang EGFR-NON AF PRYDEINIG >60 Normal >=60 [facility] Comment on above: Performed By: #### C MP, LIPID, TSH #### [facility] [address] [place] [address] Dr. Lee Huang Globulin (S) [Mass/Vol] 3.8 g/dL Normal [facility] Comment on above: Performed By: #### C MP, LIPID, TSH #### [facility] [address] [place] [address] Dr. Lee Huang Glucose [Mass/Vol] 87 mg/dL Normal 74-106 [facility] Comment on above: Performed By: #### C MP, LIPID, TSH #### [facility] [address] [place] [address] Dr. Lee Huang Potassium [Moles/Vol] 3.9 mmol/L Normal 3.4-5.0 [facility] Comment on above: Performed By: #### C MP, LIPID, TSH #### [facility] [address] [place] [address] Dr. Lee Huang Protein [Mass/Vol] 7.1 g/dL Normal 6.1-8.2 [facility] Comment on above: Performed By: #### C MP, LIPID, TSH #### [facility] [address] [place] [address] Dr. Lee Huang Sodium [Moles/Vol] 139 mmol/L Normal 137-145 [facility] Comment on above: Performed By: #### C MP, LIPID, TSH #### [facility] [address] [place] [address] Dr. Lee Huang Urea nitrogen [Mass/Vol] 15.0 mg/dL Normal 7.0-17.0 [facility] Comment on above: Performed By: #### C MP, LIPID, TSH #### [facility] [address] [place] [address] Dr. Lee Huang Urea nitrogen/Creatinine [Mass ratio] 17.9 mg/mg Normal [facility] Comment on above: Performed By: #### C MP, LIPID, TSH #### [facility] [address] [place], [place] [address] Dr. Lee Huang TSHon 10-16-2021 TSH 1.331 uIU/mL Normal 0.470-4.680 [facility] Comment on above: Performed By: #### C MP, LIPID, TSH #### [facility] [address] [place], [place] [address] Dr. Lee Huang TSH RANGE SEE BELOW Normal [facility] Comment on above: Result Comment: <0.3 4 UIU/ml HYPERTHYROID 0.34-5.60 UIU/ml EUTHYROID >5.60 UIU/ml HYPOTHYROID Performed By: #### C MP, LIPID, TSH #### [facility] [address] [address] [address] Lee Huang Vital Signs Date Time Vital Sign Value Performing Clinician Facility 03-24-2024 11:31-0400 Body height 163.83 cm [facility] 03-24-2024 11:31-0400 Body mass index (BMI) [Ratio] 32.3 kg/m2 [facility] 03-24-2024 11:31-0400 Body weight 86.8 kg [facility] 03-24-2024 11:31-0400 Diastolic blood pressure 87 mm[Hg] [facility] 03-24-2024 11:31-0400 Heart rate 82 /min [facility] 03-24-2024 11:31-0400 Respiratory rate 12 /min [facility] 03-24-2024 11:31-0400 Systolic blood pressure 129 mm[Hg] [facility] 11-25-2023 10:05-0400 Body height 163.83 cm [facility] 11-25-2023 10:05-0400 Body mass index (BMI) [Ratio] 34.7 kg/m2 [facility] 11-25-2023 10:05-0400 Body weight 93.21 kg [facility] 11-25-2023 10:05-0400 Diastolic blood pressure 98 mm[Hg] [facility] 11-25-2023 10:05-0400 Heart rate 67 /min [facility] 11-25-2023 10:05-0400 Respiratory rate 12 /min [facility] 11-25-2023 10:05-0400 Systolic blood pressure 137 mm[Hg] [facility] 10-05-2023 21:45-0500 Body height 163.83 cm Gonzalez Ball Other [facility] [employer] Other 09-07-2023 08:57-0500 Body height 163.83 cm Gonzalez Ball Other [facility] 09-07-2023 08:57-0500 Body mass index (BMI) [Ratio] 37.72 kg/m2 Gonzalez Ball Other [facility] [employer] Other 09-07-2023 08:57-0500 Body weight 101.24 kg Gonzalez Ball Other [facility] 09-07-2023 08:57-0500 Diastolic blood pressure 89 mm[Hg] Gonzalez Ball Other [facility] 09-07-2023 08:57-0500 Systolic blood pressure 135 mm[Hg] Gonzalez Ball Other [facility] 09-02-2023 14:30-0500 Body height 163.83 cm Gonzalez Ball Other [facility] 09-02-2023 14:30-0500 Body mass index (BMI) [Ratio] 37.72 kg/m2 Gonzalez Ball Other [facility] [employer] Other 09-02-2023 14:30-0500 Body weight 101.24 kg Gonzalez Ball Other [facility] 09-02-2023 14:30-0500 Diastolic blood pressure 89 mm[Hg] Gonzalez Ball Other [facility] 09-02-2023 14:30-0500 Respiratory rate 12 /min Gonzalez Ball Other [facility] [employer] Other 09-02-2023 14:30-0500 Systolic blood pressure 135 mm[Hg] Gonzalez Ball Other [facility] 07-31-2023 08:31-0500 Body height 163.83 cm Gonzalez Ball Other [facility] Other 07-31-2023 08:31-0500 Body mass index (BMI) [Ratio] 38.22 kg/m2 Gonzalez Ball Other [facility] Other 07-31-2023 08:31-0500 Body weight 102.6 kg Gonzalez Ball Other [facility] Other 07-31-2023 08:31-0500 Diastolic blood pressure 74 mm[Hg] Gonzalez Ball Other [facility] Other 07-31-2023 08:31-0500 Systolic blood pressure 126 mm[Hg] Gonzalez Ball Other [facility] Other 06-23-2023 08:24-0500 Body height 163.83 cm Gonzalez Ball Other [facility] Other 06-23-2023 08:24-0500 Body mass index (BMI) [Ratio] 38.36 kg/m2 Gonzalez Ball Other [facility] Other 06-23-2023 08:24-0500 Body weight 102.97 kg Gonzalez Ball Other [facility] Other 06-23-2023 08:24-0500 Diastolic blood pressure 76 mm[Hg] Gonzalez Ball Other [facility] Other 06-23-2023 08:24-0500 Systolic blood pressure 124 mm[Hg] Gonzalez Ball Other [facility] Other 06-11-2023 09:43-0400 Body height 163.83 cm Gonzalez Ball Other [facility] Other 05-21-2023 08:43-0400 Body height 163.83 cm Gonzalez Ball Other [facility] Other 05-15-2023 12:00-0400 Body height 163.83 cm Gonzalez Ball Other [facility] Other 05-15-2023 12:00-0400 Body mass index (BMI) [Ratio] 38.7 kg/m2 Gonzalez Ball Other [facility] Other 05-15-2023 12:00-0400 Body weight 103.87 kg Gonzalez Ball Other [facility] Other 05-15-2023 12:00-0400 Diastolic blood pressure 76 mm[Hg] Gonzalez Ball Other [facility] Other 05-15-2023 12:00-0400 Systolic blood pressure 126 mm[Hg] Gonzalez Ball Other [facility] Other 04-17-2023 12:00-0400 Body height 163.83 cm Gonzalez Ball Other [facility] Other 04-17-2023 12:00-0400 Body mass index (BMI) [Ratio] 39.54 kg/m2 Gonzalez Ball Other [facility] Other 04-17-2023 12:00-0400 Body weight 106.14 kg Gonzalez Ball Other [facility] Other 04-17-2023 12:00-0400 Diastolic blood pressure 80 mm[Hg] Gonzalez Ball Other [facility] Other 04-17-2023 12:00-0400 Systolic blood pressure 130 mm[Hg] Gonzalez [employer] Other [facility] Other 03-20-2023 09:30-0400 Body height 163.83 cm Gonzalez [employer] Other [facility] Other 03-20-2023 09:30-0400 Body mass index (BMI) [Ratio] 40.56 kg/m2 Gonzalez [employer] Other [facility] Other 03-20-2023 09:30-0400 Body weight 108.86 kg Gonzalez [employer] Other [facility] Other 03-20-2023 09:30-0400 Diastolic blood pressure 90 mm[Hg] Gonzalez [employer] Other [facility] Other 03-20-2023 09:30-0400 Respiratory rate 12 /min Gonzalez [employer] Other [facility] Other 03-20-2023 09:30-0400 Systolic blood pressure 124 mm[Hg] Gonzalez [employer] Other [facility] Other Encounters Encounter Date Encounter Type Care Provider Facility Start: 03-24-2024 End: 03-24-2024 ambulatory [facility] Work Phone: Start: 03-24-2024 End: 03-24-2024 Encounter for general adult medical examination without abnormal findings [facility] Start: 03-24-2024 End: 03-24-2024 Patient encounter procedure [facility] Work Phone: Start: 01-26-2024 End: 01-26-2024 ambulatory [facility] Start: 11-25-2023 End: 11-25-2023 ambulatory [facility] Work Phone: Start: 11-25-2023 End: 11-25-2023 Patient encounter procedure [facility] Work Phone: Start: 10-05-2023 End: 10-05-2023 ambulatory Gonzalez Thompson Other [facility] Other Start: 10-05-2023 Telephone encounter Gonzalez Thompson [facility] Start: 10-05-2023 Non-patient / Non-visit [facility] Work Phone: Start: 09-18-2023 Chart abstracting Whitney gaxiola CHEESE 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-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 Work Phone: [facility] Start: 09-07-2023 End: 09-07-2023 ambulatory Gonzalez Thompson Other [facility] Other Start: 09-07-2023 Telephone encounter Gonzalez Thompson [facility] Start: 09-07-2023 End: 09-07-2023 Patient encounter procedure [facility]- Start: 09-06-2023 End: 09-06-2023 ambulatory Gonzalez Thompson Other [facility] Other Start: 09-06-2023 Telephone encounter Gonzalez Thompson [facility] Start: 09-04-2023 End: 09-04-2023 ambulatory Gonzalez Thompson Other [facility] Other Start: 09-04-2023 Encounter by compute r francis Gonzalez Thompson [facility] Start: 09-02-2023 End: 09-02-2023 ambulatory Gonzalez Thompson Other [facility] Other Start: 09-02-2023 Office outpatient vi sit 15 minutes Gonzalez Thompson [facility] Start: 09-02-2023 End: 09-02-2023 Patient encounter procedure [facility]- Start: 08-05-2023 End: 08-05-2023 ambulatory Gonzalez Thompson Other [facility] Other Start: 08-05-2023 Telephone encounter Gonzalez Ball [facility] Start: 08-04-2023 End: 08-04-2023 ambulatory Gonzalez Ball Other [facility] Other Start: 08-04-2023 Encounter by montana blanco Gonzalez Ball [facility] Start: 07-31-2023 End: 07-31-2023 ambulatory Gonzalez Ball Other [facility] Other Start: 07-31-2023 Telephone encounter Gonzalez Ball [facility] Start: 06-23-2023 End: 06-23-2023 ambulatory Gonzalez Ball Other [facility] Other Start: 06-23-2023 Telephone encounter Gonzalez Ball [facility] Start: 06-11-2023 End: 06-11-2023 ambulatory Gonzalez Ball Other [facility] Other Start: 06-11-2023 Telephone encounter Gonzalez Ball [facility] Start: 05-21-2023 End: 05-21-2023 ambulatory Gonzalez Ball Other [facility] Other Start: 05-21-2023 Telephone encounter Gonzalez Ball [facility] Start: 05-15-2023 End: 05-15-2023 ambulatory Gonzalez Ball Other [facility] Other Start: 05-15-2023 Office outpatient vi sit 15 minutes Gonzalez Ball [facility] Start: 04-17-2023 End: 04-17-2023 ambulatory Gonzalez Ball Other [facility] Other Start: 04-17-2023 Office outpatient vi sit 15 minutes Gonzalez Ball [facility] Start: 04-16-2023 End: 04-16-2023 ambulatory Gonzalez Ball Other [facility] Other Start: 04-16-2023 Telephone encounter Gonzalez Thompson [facility] Start: 03-31-2023 End: 03-31-2023 ambulatory Gonzalez Thompson Other [facility] Other Start: 03-31-2023 Telephone encounter Gonzalez Thompson [facility] Start: 03-24-2023 End: 03-24-2023 ambulatory Gonzalez Thompson Other [facility] Other Start: 03-24-2023 Telephone encounter Gonzalez Thompson [facility] Start: 03-20-2023 End: 03-20-2023 ambulatory Gonzalez Thompson Other [facility] Other Start: 03-20-2023 Encounter for genera l adult medical examination without abnormal findings Gonzalez Thompson [facility] Start: 03-20-2023 Periodic preventive med est patient 40-64yrs Gonzalez Thompson [facility] Start: 08-03-2022 End: 08-03-2022 ambulatory KELVIN HEWITT Facility:[facility] Start: 07-29-2022 End: 07-29-2022 ambulatory KELVIN HEWITT Facility:[facility] Start: 10-17-2021 Encounter for genera l adult medical examination without abnormal findings DR GONZALEZ THOMPSON [facility] Start: 10-16-2021 Adult health examination Frank Thompson Other [facility] Other Start: 10-16-2021 End: 10-17-[address] GONZALEZ THOMPSON Facility:[facility] Start: 10-16-2021 End: 10-17-2021 Encounter for general adult medical examination without abnormal findings DR GONZALEZ THOMPSON Facility:[facility] Start: 01-19-2020 Gynecological examin ation normal Gonzalez Thompson Other [facility] Other Procedures Date Procedure Procedure Detail Performing Clinician Depression screening Chriss Thompson Other Screening for malign ant neoplasm of breast Gonzalez Thompson Other Plan of Treatment Date Care Activity Detail Author Start: 10-13-2023 End: 10-13-2023 Patient encounter procedure 10/13/2023 2:40 PM EST Office Visit [facility] [address] [place] [id number] Whitney Loza APRN-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 [address] [place] [address] [facility] Comprehensive metabo lic 2000 panel - Serum or Plasma [facility] Payers Date Payer Category Payer Blue Cross Blue [facility] [id number] 2019 Unknown [id number] 1978 Unknown [id number] 1978 Unknown [id number] 1978 Unknown [id number] 1980 Unknown [id number] Unknown [id number] Social History Date Type Detail Facility Sex Assigned At [employer] [facility] Other Start: 09-18-2023 Tobacco smoking stat [facility] Never smoked tobacco [facility] Healthcare Start: 1980 Sex Assigned At Not on file N [facility] Start: 1980 Sex Assigned At Female [facility] Clinical Notes 03-20-2023 to 09-07-2023 Note Date & Type Note Facility 09-07-2023 Evaluation note Encounter Date Diagnosis Assessment Notes Aug, Morbid (severe) obesity due to excess calories (ICD-10 - E66.01) [facility] Other 01-28-2024 Evaluation note* Encounter Date Diagnosis Assessment Notes Treatment Notes Treatment Clinical Notes Aug, Morbid (severe) obesity due to excess calories (ICD-10 - E66.01) [facility] Other 01-24-2024 Evaluation note* Encounter Date Diagnosis [...] exercise for 30 minutes, 3-5 times weekly. [facility] Other 12-27-2023 Evaluation note* Encounter Date Diagnosis Assessment Notes Treatment Notes Treatment Clinical Notes Jul, Other obesity due to excess calories (ICD-10 - E66.09) [facility] Other 12-22-2023 Evaluation note* Encounter Date Diagnosis Assessment Notes Treatment Notes Treatment Clinical Notes Jul, Other obesity due to excess calories (ICD-10 - E66.09) [facility] Other 11-14-2023 Evaluation note* Encounter Date Diagnosis Assessment Notes Treatment Notes Treatment Clinical Notes Jun, Other obesity due to excess calories (ICD-10 - E66.09) [facility] Other 10-12-2023 Evaluation note* Encounter Date Diagnosis Assessment Notes Treatment Notes Treatment Clinical Notes May, Other obesity due to excess calories (ICD-10 - E66.09) [facility] Other 10-06-2023 Evaluation note* Encounter Date Diagnosis [...] diet, exercise No adverse effects from Adipex [facility] Other 10-06-2023 Evaluation note* Encounter Date Diagnosis [...] index [BMI] 38.0-38.9, adult (ICD-10 - Z68.38) [facility] Other 09-08-2023 Evaluation note* Encounter Date Diagnosis [...] index [BMI] 39.0-39.9, adult (ICD-10 - Z68.39) [facility] Other 08-15-2023 Evaluation note* Encounter Date Diagnosis Assessment Notes Treatment Notes Treatment Clinical Notes Mar, Morbid (severe) obesity due to excess calories (ICD-10 - E66.01) [facility] Other 08-11-2023 Evaluation note* Encounter Date Diagnosis [...] mammogram for breast cancer (ICD-10 - Z12.31) [facility] Other Evaluation noteNo InformationNort Haol[facility] Other Evaluation note* Diagnosis Onset Date Resolution Status FRANCO (generalized anxiety disorder) acute Migraine without aura and wi thout status migrainosus, not intractable acute Obesity acute [facility] Work Phone: Evaluation note* Diagnosis Onset Date Resolution Status Family history of colon cancer acute FRANCO (generalized anxiety disorder) acute Migraine without aura and wi thout status migrainosus, not intractable acute Screening for colon cancer n oneactive Screening mammogram for breast cancer noneactive Wellness examination noneact lea [facility] Work Phone: History general Narrative - Reported* Type Description Date Medical History FRANCO (generalized anxiety disorde r) Medical History Contraception management Medical History Labile mood Medical History Family history of colon cancer Medical History Migraine without aur a and without status migrainosus, not intractable Medical History Primary insomnia Surgical History LEFT KNEE ARTHROSCOPY 2005 Surgical History COLONOSCOPY 2019 Hospitalization History SEE SURGICAL HX [facility] Other Summary Purpose Family History Relationship Condition [...] BE BASED ON THE PRIMARY CLINICAL RECORDS. [facility]. provides no warranty or guarantee of the accuracy or completeness of information in this document.
[2024-05-11 07:36] LABS: HCG Qualitative NEGATIVE (NEGATIVE); Internal Control Within Normal Limits
[2024-05-11 07:37] VITALS: BP 137/93; PULSE 75; TEMP 36.1; O2SAT 99; BMI 31.8
[2024-05-11] MEDS: LACTATED RINGER'S SOLUTION 1,000 ML 50 ML IV (07:52)
[2024-05-11 09:21] VITALS: BP 115/76; PULSE 75; TEMP 36.4; O2SAT 99
[2024-05-11 09:37] VITALS: BP 96/71; PULSE 64; O2SAT 100
[2024-05-11 09:51] VITALS: BP 96/71; PULSE 74; O2SAT 100
== END 2024-05-11 09:51 | disposition home or self-care (01) ==
PROVIDERS: Anesthesiology; PCP Internal Medicine; Visit Provider Surgery
PROC: (CPT 812; principal; 2024-05-11 08:30)
DX: Z12.11 Encounter for screening for malignant neoplasm of colon (principal); Z80.0 Family history of malignant neoplasm of digestive organs; K57.30 Diverticulosis of large intestine without perforation or abscess without bleeding; K21.9 Gastro-esophageal reflux disease without esophagitis
CPT/HCPCS: 45378; 36415; 84703

== ENCOUNTER 2025-04-14 07:42 | Outpatient (OUT) | payer BC, SELFPAY ==
--- OUTSIDE RECORDS SUMMARY | 2025-04-14 07:44 | XMS_ITS | Clinical Summary ---
Author Organization [facility] Address [address] [place] [address] Care Team Providers Care Food And Beverage Cashier Name Role Phone VishGonzalez Primary Care Provider [phone] Allergies No known active allergies Medications Adipex-P 37.5 MG tablet 03/27/2023 Active Active Problems No known active problems Family History Medical History Relation Name Comments Melanoma Neg Hx Social History Tobacco Use Types Packs/Day Years Used Date Smoking Tobacco: Never Smokeless Tobacco: Never Tobacco Cessation:Counseling Given: Not Answered Comments Unknown Sex and Gender Information Value Date Recorded Sex Assigned at Female 10/12/2023 3:51 PM EST Legal Sex Female 7:34 PM EDT Gender Identity Female 10/12/2023 3:51 PM EST Sexual Orientation Not on file Plan of Treatment Not on file Insurance [facility] Care Teams Food And Beverage Cashier Relationship Specialty Start Date End Date Gonzalez Wahl DO PCP - General 10/12/23
--- OUTSIDE RECORDS SUMMARY | 2025-04-14 07:45 | XMS_ITS | CCD ---
Author Organization [facility] Care Team Providers Care Roll Scale Worker Name Role Phone KELVIN HEWITT Consulting Unavailable KASH, KELVIN Attending Unavailable VISH, DR BRIDGES Primary Care Unavailable KASH, KELVIN Admitting Unavailable KASH, EKLVIN Admitting Unavailable KASH, KELVIN Consulting Unavailable KASH, KELVIN Attending Unavailable BALL, DR BRIDGES Primary Care Unavailable BALL, DR BRIDGES Consulting Unavailable BALL, DR BRIDGES Attending Unavailable BALL, DR BRIDGES Admitting Unavailable BALL, DR BRIDGES Primary Care Unavailable Vish, Gonzalez Unavailable Unavailable Primary Care Provider UnavailRAZIA Cordova Attending Unavailable GONZALEZ WAHL Referring Unavailable GONZALEZ WAHL E Primary Care Unavailable Vish DO, Gonzalez E Primary Care Provider Gonzalez Wahl DO Primary Care Provider [phone] Gonzalez Wahl DO Attending Provider Allergies Allergy Classification Reported Allergen(s) Allergy Type Date of Onset Reaction(s) Facility (1 source) Shellfish Drug allergy (disorder) [facility] (20 sources) Shellfish Drug allergy Comment:SHELLF SARY M9 [employer] Other (5 sources) Shellfish; Translations: [SHELLFISH DERIVED] Propensity to adverse reactions to food (disorder) 4 Shortness Of Breath [facility] (5 sources) FISH CONTAINING PRODUCTS; Translations: [FISH CONTAINING PRODUCTS] Propensity to adverse reactions to food (disorder) 9 [facility] Medications Current Medications Medication Drug Class(es) Dates Sig (Normalized) Sig (Original) cholecalciferol 0.025 mg oral tablet (1 source) Vitamin D End: 01-26-2024 cholecalciferol, vitamin D3, (VITAMIN D3) 1,000 units tablet Take 10 tablets (10,000 Units total) by mouth in the morning. 01/26/2024 Discontinued (Therapy completed) Norgestimate-Ethinyl Estradiol (20 sources) Progestin, Estrogen Start: 01-10-2025 Norgestimate-Ethin yl Estradiol (Nadiya) 0.25-0.035 mg tablet Active 1 TAB PO Daily 84 84 January 10, 2025 5:17pm Complies with drug therapy Start: 05-16-2024 End: 01-10-2025 take 1 tablet by mouth once daily Norgestimate-Ethinyl Estradiol (Nadiya) 0.25-35 mg-mcg tablet Discontinued 0 .ROUTE .COMPLEX 84 May 16, 2024 8:42am January 10, 2025 5:18pm TAKE 1 TABLET BY MOUTH EVERY DAY Start: 05-16-2024 take 1 tablet by jairon th once daily Norgestimate-Ethinyl Estradiol (Nadiya) 0.25-35 mg-mcg tablet Active 0 .ROUTE .COMPLEX 84 May 16, 2024 7:42am TAKE 1 TABLET BY MOUTH EVERY DAY Start: 05-16-2024 End: 05-16-2024 take 1 tablet by mouth once daily Norgestimate-Ethinyl Estradiol (Nadiya) 0.25-35 mg-mcg tablet Discontinued 1 TAB PO Daily May 16, 2024 12:00am May 16, 2024 8:42am Start: 05-16-2024 End: 05-16-2024 take 1 tablet by mouth once daily Norgestimate-Ethinyl Estradiol (Nadiya) 0.25-35 mg-mcg tablet Discontinued 1 TAB PO Daily May 15, 2024 11:00pm May 16, 2024 7:42am Start: 11-25-2023 End: 01-10-2025 take 1 tablet by mouth once daily Norgestimate-Ethinyl Estradiol (Nadiya) 0.25-35 mg-mcg tablet Discontinued 1 TAB PO Daily November 25, 2023 12:00am January 10, 2025 5:17pm Start: 11-25-2023 take 1 tablet by jairon th once daily Norgestimate-Ethinyl Estradiol (Nadiya) 0.25-35 mg-mcg tablet Active 1 TAB PO Daily November 24, 2023 11:00pm Start: 11-25-2023 take 1 tablet by jairon th once daily Norgestimate-Ethinyl Estradiol (Nadiya) 0.25-35 mg-mcg tablet Active 1 TAB PO Daily November 25, 2023 12:00am Start: 10-31-2018 End: 01-26-2024 take 1 tablet by mouth once daily SPRINTEC, 28, 0.25-35 mg-mcg per tablet Take 1 tablet by mouth daily. 3 10/31/2018 01/26/2024 Discontinued (Alternate therapy) take 1 tablet by jairon th once in the morning norgestimate-ethinyl estradioL (ORTHO-CYCLEN) 0.25-35 mg-mcg per tablet Take 1 tablet by mouth in the morning. Active take 1 tablet by jairon th once daily Nadiya 0.25-35 MG-MCG TAKE 1 TABLET BY MOUTH EVERY DAY for 84 Active etodolac 400 mg oral tablet (1 source) Nonsteroidal Anti-inflammatory Drug End: 01-26-2024 etodolac (LODINE) 400 mg tablet Take 400 mg by mouth. 01/26/2024 Discontinued (Therapy completed) magnesium sulfate 0.0277 meq/ml / potassium sulfate 0.0374 meq/ml / sodium sulfate 0.257 meq/ml oral solution (1 source) Start: 02-21-2019 End: 01-26-2024 sodium,potassium,m ag sulfates (SUPREP BOWEL PREP KIT) 17.5-3.13-1.6 gram recon soln 177 ml,actual weight, 2 times daily, Oral 1 kit 02/21/2019 01/26/2024 Discontinued (Therapy completed) peg 3350-sod sulf,nmjw-aoh-wqv 178.7-7.3-0.5 gram recon soln (1 source) Start: 01-26-2024 End: 01-27-2024 peg 3350-sod sulf,jhkp-ajh-hvj 178.7-7.3-0.5 gram recon soln Indications: Encounter for colonoscopy in patient with family history of colon cancer Take 1 kit by mouth once daily for 1 dose. Please see instructional sheet given by physicians office. 1 each 01/26/2024 01/27/2024 Active sod sulf-pot chloride-mag sulf 1.479-0.188- 0.225 gram tablet (3 sources) Start: 05-05-2024 sod sulf-pot chloride-mag sulf 1.479-0.188- 0.225 gram tablet Indications: Encounter for colonoscopy in patient with family history of colon cancer Please see instructional sheet given by physicians office. 24 tablet 05/05/2024 Active traZODone hydrochloride 50 mg oral tablet (11 sources) Serotonin Reuptake Inhibitor Start: 12-03-2023 take 1 tablet by mouth once daily at bedtime Trazodone 50 mg tablet Active 0 .ROUTE .COMPLEX 90 December 03, 2023 4:04pm TAKE 1 TABLET BY MOUTH EVERYDAY AT BEDTIME Complies with drug therapy Start: 12-03-2023 End: 12-03-2023 take 1 tablet by mouth once daily at bedtime as needed Trazodone 50 mg tablet Discontinued 50 MG PO Daily at bedtime as needed December 03, 2023 12:00am December 03, 2023 4:04pm Completed/Discontinued Medications Medication Drug Class(es) Dates Sig (Normalized) Sig (Original) phentermine hydrochloride 37.5 mg oral tablet (20 sources) Sympathomimetic Amine Anorectic Start: 03-24-2023 End: 03-29-2025 take 1 tablet by mouth once daily Phentermine 37.5 mg tablet Discontinued 37.5 MG PO Daily June 27, 2024 4:43pm July 28, 2024 9:48pm Rx # 13 start 06/27 Start: 03-20-2023 take 1 tablet by jairon [...] pill packs at one time. *Reorder from [facility] for eRx and Interaction Alerts* May, Not-Taking/PRN Start: 05-25-2022 take 1 tablet by jairon th once daily Sprintec (28) 0.25-35mg-mcg Sprintec (28) 0.25-35mg-mcg, 1 (one) Tablet daily # 28, 05/25/2022, Ref. x11. Active oral daily for 28 Please dispense 3 pill packs at one time. *Reorder from [facility] for eRx and Interaction Alerts* May, Not-Taking Problems Active Problems Problem Classification Problem Date Documented Date Episodic/Chronic Anxiety disorders (20 sources) Generalized anxiety disorder; Translations: [Generalized anxiety disorder] Chronic Contraceptive and procreative management (5 sources) Surveillance of contraception; Translations: [Encounter for contraceptive management, unspecified] Episodic Headache; including migraine (16 sources) Chronic migraine without aura, non-refractory; Translations: [Migraine without aura, not intractable, without status migrainosus] 11-25-2023 Chronic Miscellaneous mental health disorders (10 sources) Primary insomnia; Translations: [Primary insomnia] 11-25-2023 [...] Chronic Other nutritional; endocrine; and metabolic disorders (6 sources) Obesity; Translations: [Obesity, unspecified] 11-25-2023 Chronic Other nutritional; endocrine; and metabolic disorders (4 sources) Obesity, unspecified; Translations: [Obesity, unspecified] 11-25-2023 Chronic Other screening for suspected conditions (not mental disorders or infectious disease) (8 sources) Encounter for screening mammogram for malignant [...] Onset: 01-26-2024 03-24-2024 Episodic Residual codes; unclassified (5 sources) Family history of cancer of colon; Translations: [...] Test Name Value Interpretation Reference Range Facility No Panel Informationon 05-11 Human Chorionic Gonadotropin, Qual Negative NEGATIVE [facility] Serum pregnancyOrdered By: Hoang Lechuga on 05-11-2024 [facility]) Basophils/100 WBC Manual cnt (Bld)on 04-06-2024 Basophils/100 WBC (Bld) Basophils/100 leukocytes in Blood by Manual count Low 0.2-2.0 [facility] Cholesterol in LDL Calc [Mas s/Vol]on 04-06-2024 Cholesterol in LDL [Mass/Vol] Cholesterol in LDL [Mass/volume] in Serum or Plasma by calculation [facility] Comment on above: <100 mg/dl [id number] 0-129 mg/dl NEAR OR ABOVE [id number] mg/dl BORDERLINE [id number] mg/dl HIGH>190 mg/dl VERY HIGH Cholesterol in VLDL Calc [Ma ss/Vol]on 04-06-2024 Cholesterol in VLDL [Mass/Vol] Cholesterol in VLDL [Mass/volume] in Serum or Plasma by calculation [facility] Eosinophils/100 WBC Manual c nt (Bld)on 04-06-2024 Eosinophils/100 WBC (Bld) Eosinophils/100 leukocytes in Blood by Manual count 0.9-7.0 [facility] Erythrocyte distribution wid th Auto (RBC) [Ratio]on 04-06-2024 Erythrocyte distribution width (RBC) [Ratio] Erythrocyte distribution width [Ratio] by Automated count 11.0-15.0 [facility] Estimated glomerular filtrat ion rate (GFR) non- Americanon 04-06-2024 GFR/1.73 sq M.predicted among non-blacks MDRD (S/P/Bld) [Vol rate/Area] Estimated glomerular filtration rate (GFR) non- >=60 [facility] Globulin Calc (S) [Mass/Vol] on 04-06-2024 Globulin (S) [Mass/Vol] Serum globulin measurement by calculation (mass/volume) [facility] Glucose mean value [Mass/vol ume] in Blood Estimated from glycated hemoglobinon 04-06-2024 Average glucose Estimated from glycated hemoglobin (Bld) [Mass/Vol] Glucose mean value [Mass/volume] in Blood Estimated from glycated hemoglobin [facility] Hematocrit Auto (Bld) [Volum e fraction]on 04-06-2024 Hematocrit (Bld) [Volume fraction] Hematocrit [Volume Fraction] of Blood by Automated count 36.0-48.0 [facility] Hemoglobin [Mass/volume] in Bloodon 04-06-2024 Hemoglobin (Bld) [Mass/Vol] Hemoglobin [Mass/volume] in Blood 12.0-16.0 [facility] Laboratory - Chemistry and C hemistry - challengeon 04-06-2024 Albumin [Mass/Vol] 3.1 g/dL Low 3.4-5.0 [facility] ALP [Catalytic activity/Vol] 55 U/L 46-116 [facility] ALT [Catalytic activity/Vol] 24 U/L 14-59 [facility] AST [Catalytic activity/Vol] 13 U/L Low 15-37 [facility] Bilirubin [Mass/Vol] 0.3 mg/dL 0.2-1.0 [facility] Calcium [Mass/Vol] 8.8 mg/dL 8.5-10.1 [facility] Chloride [Moles/Vol] 104 mmol/L 98-107 [facility] Cholesterol [Mass/Vol] 185 mg/dL <=200 [facility] Cholesterol in HDL [Mass/Vol] 57 mg/dL 40-60 [facility] Comment on above: > or =60 mg/dl - LOW CARDIOVASCULAR RISK<40 mg/dl - HIGH CARDIOVASCULAR RISK CO2 [Moles/Vol] 25.8 mmol/L 21.0-32.0 [facility] Creatinine [Mass/Vol] 0.85 mg/dL 0.55-1.02 [facility] GFR/1.73 sq M.predicted MDRD (S/P/Bld) [Vol rate/Area] mL/min/{1.73_m2} >=60 [facility] Glucose [Mass/Vol] 84 mg/dL 74-106 [facility] Potassium [Moles/Vol] 4.5 mmol/L 3.5-5.1 [facility] Protein [Mass/Vol] 6.7 g/dL 6.4-8.2 [facility] Sodium [Moles/Vol] 138 mmol/L 136-145 [facility] Triglyceride [Mass/Vol] 65 mg/dL <=150 [facility] TSH Qn 1.534 m[IU]/L 0.358-3.740 [facility] Urea nitrogen [Mass/Vol] 12.0 mg/dL 7.0-18.0 [facility] Urea nitrogen/Creatinine [Mass ratio] 14.1 mg/mg [facility] Laboratory - Hematology and Cell countson 04-06-2024 HbA1c (Bld) [Mass fraction] 5.0 % 4.5-6.2 [facility] Comment on above: ADA RECOMMENDED LIMI T 4.0 - 6.0ADA THERAPEUTIC TARGET < 7.0ACTION SUGGESTED> 7.0 Lymphocytes/100 WBC (Bld) 39.0 % 20.5-60.0 [facility] Monocytes/100 WBC (Bld) 6.0 % 1.7-12.0 [facility] Leukocytes [#/volume] correc jayne for nucleated erythrocytes in Blood by Automated counon 04-06-2024 WBC corrected for nucl RBC Auto (Bld) [#/Vol] Leukocytes [#/volume] corrected for nucleated erythrocytes in Blood by Automated coun 4.0-11.0 [facility] MCH Auto (RBC) [Entitic mass ]on 04-06-2024 MCH (RBC) [Entitic mass] MCH [Entitic mass] by Automated count 26.7-34.0 [facility] MCHC Auto (RBC) [Mass/Vol]on 04-06-2024 MCHC (RBC) [Mass/Vol] MCHC [Mass/volume] by Automated count 29.9-35.2 [facility] MCV Auto (RBC) [Entitic vol] on 04-06-2024 MCV (RBC) [Entitic vol] MCV [Entitic volume] by Automated count 81.0-99.0 [facility] No Panel Informationon 04-06 Absolute Basophils (Manual) 0.00 10 3/uL 0.00-0.10 [facility] Eosinophils # (Manual) 0.11 10 3/uL 0.00-0.70 [facility] Comment on above: --- 04/06/24 1220 -- -Eos Abs Manual previously reported as: 2.00 H 10 3/uL Lymphocytes # (Manual) 2.26 10 3/uL 1.20-3.80 [facility] Comment on above: --- 04/06/24 1220 -- -Lymph Abs Man previously reported as: 39.00 H 10 3/uL Monocytes # (Manual) 0.34 10 3/uL 0.30-0.80 [facility] Comment on above: --- 04/06/24 1220 -- -[place] Abs Manual previously reported as: 6.00 H 10 3/uL Segmented Neutrophils # (Manual) 3.07 10 3/uL 1.4-6.5 [facility] Comment on above: --- 04/06/24 1219 -- -Seg Neut Abs previously reported as: 53.00 H 10 3/uL Platelet mean volume Auto (B ld) [Entitic vol]on 04-06-2024 Platelet mean volume (Bld) [Entitic vol] Platelet mean volume [Entitic volume] in Blood by Automated count 9.5-13.5 [facility] Platelets Auto (Bld) [#/Vol] on 04-06-2024 Platelets (Bld) [#/Vol] Platelets [#/volume] in Blood by Automated count 150-450 [facility] RBC Auto (Bld) [#/Vol]on RBC (Bld) [#/Vol] Erythrocytes [#/volume] in Blood by Automated count 4.20-5.40 [facility] Segmented neutrophils/100 WB C Manual cnt (Bld)on 04-06-2024 Segmented neutrophils/100 WBC (Bld) Manual blood segmented neutrophils/100 leukocytes 43.0-75.0 [facility] Serum or plasma albumin/glob ulin mass ratioon 04-06-2024 Albumin/Globulin [Mass ratio] Serum or plasma albumin/globulin mass ratio [facility] Serum or plasma anion gap de terminationon 04-06-2024 Anion gap [Moles/Vol] Serum or plasma anion gap determination [facility] Serum or plasma total choles terol/high density lipoprotein (HDL) cholesterol mass lorena 04-06-2024 Cholesterol.total/Cho lesterol in HDL [Mass ratio] Serum or plasma total cholesterol/high density lipoprotein (HDL) cholesterol mass rat [facility] Comment on above: 3.3 - 4.4 LOW RISK4. 4 - 7.1 AVERAGE RISK7.1 - 11.0 MODERATE RISK>11.0 HIGH RISK ASYMPTOMATIC COVID-19 ANTIGE Non 08-03-2022 EUA Statement SEE BELOW Normal [facility] Comment on above: Result Comment: This [...] sooner. Performed By: #### C VDAGA #### [facility] [address] [place] [address] Dr. Lee Huang SARS-CoV-2 (COVID-19) RNA ISAIAH+probe Ql (Unsp spec) Negative Normal NEGATIVE [facility] Comment on above: Result Comment: Nega tive results are presumptive. They do not preclude infection and should not be used as the sole basis for treatment decisions. Additional confirmatory testing by a molecular method should be considered. Performed By: #### C VDAGA #### [facility] [address] [place] [address] Dr. Lee Huang [facility]on 07-11 SARS-CoV-2 (COVID-19) RNA ISAIAH+probe Ql (Unsp spec) Detected Critically abnormal NOT DETECTED [facility] Comment on above: Result Comment: This test is not yet approved or cleared by the [place] FDA. When there are no FDA-approved or cleared tests available, and other criteria are met, FDA can make tests available under an emergency access mechanism called an Emergency Use Authorization (EUA). The EUA for this test is supported by the Hose Operator of Health and Human Service's declaration [...] used). Performed By: #### C VDTBH #### [facility] [address] [place] [address] Dr. Lee Huang CBC AUTO DIFFon 10-16-2021 BASO # 0.1 103/ul Normal 0.0-0.1 [facility] Comment on above: Performed By: #### C BC #### [facility] [address] [place] [address] Dr. Lee Huang Basophils/100 WBC (Bld) 0.7 % Normal 0.2-2.0 [facility] Comment on above: Performed By: #### C BC #### [facility] [address] [place] [address] Dr. Lee Huang EO # 0.1 103/ul Normal 0.0-0.7 [facility] Comment on above: Performed By: #### C BC #### [facility] [address] [place] [address] Dr. Lee Huang Eosinophils/100 WBC (Bld) 2.0 % Normal 0.9-7.0 [facility] Comment on above: Performed By: #### C BC #### [facility] [address] [place] [address] Dr. Lee Huang Erythrocyte distribution width (RBC) [Ratio] 12.8 % Normal 11.0-15.0 [facility] Comment on above: Performed By: #### C BC #### [facility] [address] [place] [address] Dr. Lee Huang Hematocrit (Bld) [Volume fraction] 42.5 % Normal 36.0-48.0 [facility] Comment on above: Performed By: #### C BC #### [facility] [address] [place] [address] Dr. Lee Huang Hemoglobin (Bld) [Mass/Vol] 14.0 g/dL Normal 12.0-16.0 [facility] Comment on above: Performed By: #### C BC #### [facility] [address] [place] [address] Dr. Lee Huang IG # 0.02 10e3/ul Normal 0.00-0.03 [facility] Comment on above: Performed By: #### C BC #### [facility] [address] [place] [address] Dr. Lee Huang IG % 0.3 % Normal 0.0-0.5 [facility] Comment on above: Performed By: #### C BC #### [facility] [address] [place] [address] Dr. Lee Huang LYMPH # 2.0 103/ul Normal 1.2-3.8 [facility] Comment on above: Performed By: #### C BC #### [facility] [address] [place] [address] Dr. Lee Huang Lymphocytes/100 WBC (Bld) 28.2 % Normal 20.5-60.0 [facility] Comment on above: Performed By: #### C BC #### [facility] [address] [place] [address] Dr. Lee Huang MANUAL DIFF REQ NO Normal [facility] Comment on above: Performed By: #### C BC #### [facility] [address] [place] [address] Dr. Lee Huang MCH (RBC) [Entitic mass] 29.4 pg Normal 26.7-34.0 [facility] Comment on above: Performed By: #### C BC #### [facility] [address] [place] [address] Dr. Lee Huang MCHC (RBC) [Mass/Vol] 32.9 g/dL Normal 29.9-35.2 [facility] Comment on above: Performed By: #### C BC #### [facility] [address] [place] [address] Dr. Lee Huang MCV (RBC) [Entitic vol] 89.1 fL Normal 81.0-99.0 [facility] Comment on above: Performed By: #### C BC #### [facility] [address] [place] [address] Dr. Lee Huang MONO # 0.5 103/ul Normal 0.3-0.8 [facility] Comment on above: Performed By: #### C BC #### [facility] [address] [place] [address] Dr. Lee Huang Monocytes/100 WBC (Bld) 7.2 % Normal 1.7-12.0 [facility] Comment on above: Performed By: #### C BC #### [facility] [address] [place] [address] Dr. Lee Huang NEUT # 4.3 103/ul Normal 1.4-6.5 [facility] Comment on above: Performed By: #### C BC #### [facility] [address] [place] [address] Dr. Lee Huang Neutrophils/100 WBC (Bld) 61.6 % Normal 43.0-75.0 [facility] Comment on above: Performed By: #### C BC #### [facility] [address] [place] [address] Dr. Lee Huang Platelet mean volume (Bld) [Entitic vol] 9.8 fL Normal 9.5-13.5 [facility] Comment on above: Performed By: #### C BC #### [facility] [address] [place] [address] Dr. Lee Huang PLT 317 103/ul Normal 150-450 [facility] Comment on above: Performed By: #### C BC #### [facility] [address] [place] [address] Dr. Lee Huang RBC 4.77 106/ul Normal 4.20-5.40 [facility] Comment on above: Performed By: #### C BC #### [facility] [address] [place] [address] Dr. Lee Huang WBC 6.9 103/ul Normal 4.0-11.0 [facility] Comment on above: Performed By: #### C BC #### [facility] [address] [place] [address] Dr. Lee Huang GLYCOHEMOGLOBIN A1Con 2021 ADA RECOMMENDATION ADA THERAPEUTIC TARGET 6.0 - 7.0 ACTION SUGGESTED > 7.0 Normal [facility] Comment on above: Performed By: #### A 1C #### [facility] [address] [place] [address] Dr. Lee Huang Glucose [Mass/Vol] 108 mg/dL Normal [facility] Comment on above: Performed By: #### A 1C #### [facility] [address] [place] [address] Dr. Lee Huang HbA1c (Bld) [Mass fraction] 5.4 % Normal <=6.0 [facility] Comment on above: Performed By: #### A 1C #### [facility] [address] [place] [address] Dr. Lee Huang LIPID PROFILEon 10-16-2021 CHOL-HDL RATIO NORM SEE BELOW Normal [facility] Comment on above: Result Comment: 3.3 - 4.4 LOW RISK 4.4 - 7.1 AVERAGE RISK 7.1 - 11.0 MODERATE RISK >11.0 HIGH RISK Performed By: #### C MP, LIPID, TSH #### [facility] [address] [address] [address] Lee Huang Cholesterol [Mass/Vol] 193 mg/dL Normal <=200 [facility] Comment on above: Performed By: #### C MP, LIPID, TSH #### [facility] [address] [address] [address] Lee Huang Cholesterol in HDL [Mass/Vol] 56 mg/dL Normal [facility] Comment on above: Performed By: #### C MP, LIPID, TSH #### [facility] [address] [address] [address] Lee Huang Cholesterol in LDL [Mass/Vol] 116.6 mg/dL Normal [facility] Comment on above: Performed By: #### C MP, LIPID, TSH #### [facility] [address] [place] [address] Dr. Lee Huang Cholesterol.total/Cho lesterol in HDL [Mass ratio] 3.4 {ratio} Normal [facility] Comment on above: Performed By: #### C MP, LIPID, TSH #### [facility] [address] [address] [address] Lee Huang HDL NORMAL > or = 60 mg/dl - LOW CARDIOVASCULAR RISK <40 mg/dl - HIGH CARDIOVASCULAR RISK Normal [facility] Comment on above: Performed By: #### C MP, LIPID, TSH #### [facility] [address] [address] [address] Lee Huang LDL CALC NORMAL SEE BELOW Normal [facility] Comment on above: Result Comment: <100 mg/dl OPTIMAL 100 - 129 mg/dl NEAR OR ABOVE OPTIMAL 130 - 159 mg/dl BORDERLINE HIGH 160 - 189 mg/dl HIGH >190 mg/dl VERY HIGH Performed By: #### C MP, LIPID, TSH #### [facility] [address] [address] [address] Lee Huang Triglyceride [Mass/Vol] 102 mg/dL Normal <=150 [facility] Comment on above: Performed By: #### C MP, LIPID, TSH #### [facility] [address] [address] [address] Lee Huang VLDL CALC 20.4 mg/dL Normal [facility] Comment on above: Performed By: #### C MP, LIPID, TSH #### [facility] [address] [address] [address] Lee Huang PROF 14(COMP METB)on 022 Albumin [Mass/Vol] 3.3 g/dL Critically low 3.5-5.0 [facility] Comment on above: Performed By: #### C MP, LIPID, TSH #### [facility] [address] [address] [address] Lee Huang Albumin/Globulin [Mass ratio] 0.9 {ratio} Normal [facility] Comment on above: Performed By: #### C MP, LIPID, TSH #### [facility] [address] [address] [address] Lee Huang ALP [Catalytic activity/Vol] 61 U/L Normal 38-126 [facility] Comment on above: Performed By: #### C MP, LIPID, TSH #### [facility] [address] [address] [address] Lee Huang ALT [Catalytic activity/Vol] 29 U/L Normal 9-52 [facility] Comment on above: Performed By: #### C MP, LIPID, TSH #### [facility] [address] [address] [address] Lee Huang Anion gap [Moles/Vol] 11.6 mmol/L Normal [facility] Comment on above: Performed By: #### C MP, LIPID, TSH #### [facility] [address] [address] [address] Lee Huang AST [Catalytic activity/Vol] 13 U/L Critically low 14-36 [facility] Comment on above: Performed By: #### C MP, LIPID, TSH #### [facility] [address] [address] [address] eLe Huang Bilirubin [Mass/Vol] 0.4 mg/dL Normal 0.2-1.3 [facility] Comment on above: Performed By: #### C MP, LIPID, TSH #### [facility] [address] [address] [address] Lee Huang Calcium [Mass/Vol] 8.4 mg/dL Normal 8.4-10.2 [facility] Comment on above: Performed By: #### C MP, LIPID, TSH #### [facility] [address] [address] [address] Lee Huang Chloride [Moles/Vol] 105 mmol/L Normal 98-107 [facility] Comment on above: Performed By: #### C MP, LIPID, TSH #### [facility] [address] [address] [address] Lee Huang CO2 [Moles/Vol] 26.3 mmol/L Normal 22.0-30.0 [facility] Comment on above: Performed By: #### C MP, LIPID, TSH #### [facility] [address] [place] [address] Dr. Lee Huang Creatinine [Mass/Vol] 0.84 mg/dL Normal 0.52-1.04 [facility] Comment on above: Performed By: #### C MP, LIPID, TSH #### [facility] [address] [address] [address] Lee Huang EGFR-AF CAMBODIAN >60 Normal >=60 [facility] Comment on above: Performed By: #### C MP, LIPID, TSH #### [facility] [address] [place] [address] Dr. Lee Huang EGFR-NON AF CAMBODIAN >60 Normal >=60 [facility] Comment on above: Performed By: #### C MP, LIPID, TSH #### [facility] [address] [address] [address] Lee Huang Globulin (S) [Mass/Vol] 3.8 g/dL Normal [facility] Comment on above: Performed By: #### C MP, LIPID, TSH #### [facility] [address] [address] [address] Lee Huang Glucose [Mass/Vol] 87 mg/dL Normal 74-106 [facility] Comment on above: Performed By: #### C MP, LIPID, TSH #### [facility] [address] [place] [address] Dr. Lee Huang Potassium [Moles/Vol] 3.9 mmol/L Normal 3.4-5.0 [facility] Comment on above: Performed By: #### C MP, LIPID, TSH #### [facility] [address] [place] [address] Dr. Lee Huang Protein [Mass/Vol] 7.1 g/dL Normal 6.1-8.2 [facility] Comment on above: Performed By: #### C MP, LIPID, TSH #### [facility] [address] [place] [address] Dr. Lee Huang Sodium [Moles/Vol] 139 mmol/L Normal 137-145 [facility] Comment on above: Performed By: #### C MP, LIPID, TSH #### [facility] [address] [place] [address] Dr. Lee Huang Urea nitrogen [Mass/Vol] 15.0 mg/dL Normal 7.0-17.0 [facility] Comment on above: Performed By: #### C MP, LIPID, TSH #### [facility] [address] [place] [address] Dr. Lee Huang Urea nitrogen/Creatinine [Mass ratio] 17.9 mg/mg Normal [facility] Comment on above: Performed By: #### C MP, LIPID, TSH #### [facility] [address] [place] [address] Dr. Lee Huang TSHon 10-16-2021 TSH 1.331 uIU/mL Normal 0.470-4.680 [facility] Comment on above: Performed By: #### C MP, LIPID, TSH #### [facility] [address] [place] [address] Dr. Lee Huang TSH RANGE SEE BELOW Normal [facility] Comment on above: Result Comment: <0.3 4 UIU/ml HYPERTHYROID 0.34-5.60 UIU/ml EUTHYROID >5.60 UIU/ml HYPOTHYROID Performed By: #### C MP, LIPID, TSH #### [facility] [address] [address] [address] Lee Huang Vital Signs Date Time Vital Sign Value Performing Clinician Facility 03-29-2025 13:33-0400 Body height 163.83 cm Gonzalez Ball DO Work Phone: [facility] 03-29-2025 13:33-0400 Body mass index (BMI) [Ratio] 35.5 kg/m2 Gonzalez Ball DO Work Phone: [facility] 03-29-2025 13:33-0400 Body weight 95.31 kg Gonzalez Ball DO Work Phone: [facility] 03-29-2025 13:33-0400 Diastolic blood pressure 90 mm[Hg] Gonzalez Ball DO Work Phone: [facility] 03-29-2025 13:33-0400 Heart rate 91 /min Gonzalez Ball DO Work Phone: [facility] 03-29-2025 13:33-0400 Respiratory rate 12 /min Gonzalez Ball DO Work Phone: [facility] 03-29-2025 13:33-0400 Systolic blood pressure 138 mm[Hg] Gonzalez Ball DO Work Phone: [facility] 09-20-2024 14:04-0500 Body height 163.83 cm [facility] 09-20-2024 14:04-0500 Body mass index (BMI) [Ratio] 31.1 kg/m2 [facility] 09-20-2024 14:04-0500 Body weight 83.46 kg [facility] 09-20-2024 14:04-0500 Diastolic blood pressure 89 mm[Hg] [facility] 09-20-2024 14:04-0500 Heart rate 77 /min [facility] 09-20-2024 14:04-0500 Respiratory rate 12 /min [facility] 09-20-2024 14:04-0500 Systolic blood pressure 139 mm[Hg] [facility] 06-27-2024 15:42-0500 Body mass index (BMI) [Ratio] 32.1 kg/m2 [facility] 06-27-2024 15:42-0500 Diastolic blood pressure 89 mm[Hg] [facility] 06-27-2024 15:42-0500 Systolic blood pressure 139 mm[Hg] [facility] 06-27-2024 15:03-0500 Body height 163.83 cm [facility] 06-27-2024 15:03-0500 Body weight 86.29 kg [facility] 06-27-2024 15:03-0500 Heart rate 75 /min [facility] 06-27-2024 15:03-0500 Respiratory rate 12 /min [facility] 05-05-2024 14:56-0400 Body height 162.6 cm Razia Malik PIPE STEM REPAIRER-GMAT [employer]OR Work Phone: [facility] 05-05-2024 14:56-0400 Body mass index (BMI) [Ratio] 31.93 kg/m2 Razia Malik PIPE STEM REPAIRER-GMAT TUTOR Work Phone: [facility] 05-05-2024 14:56-0400 Body weight 84.37 kg Razia Nicholson PIPE STEM REPAIRER-GMAT TUTOR Work Phone: [facility] 05-05-2024 14:56-0400 Diastolic blood pressure 84 mm[Hg] Razia Nicholson PIPE STEM REPAIRER-GMAT TUTOR Work Phone: [facility] 05-05-2024 14:56-0400 Heart rate 69 /min Razia Nicholson PIPE STEM REPAIRER-GM[employer] TUTOR Work Phone: [facility] 05-05-2024 14:56-0400 Systolic blood pressure 143 mm[Hg] Razia Nicholson PIPE STEM REPAIRER-GMAT TUTOR Work Phone: [facility] 03-24-2024 11:31-0400 Body height 163.83 cm [facility] 03-24-2024 11:31-0400 Body mass index (BMI) [Ratio] 32.3 kg/m2 [facility] 03-24-2024 11:31-0400 Body weight 86.8 kg [facility] 03-24-2024 11:31-0400 Diastolic blood pressure 87 mm[Hg] [facility] 03-24-2024 11:31-0400 Heart rate 82 /min [facility] 03-24-2024 11:31-0400 Respiratory rate 12 /min [facility] 03-24-2024 11:31-0400 Systolic blood pressure 129 mm[Hg] [facility] 01-26-2024 09:17-0400 Body weight 89.18 kg Razia Nicholson PIPE STEM REPAIRER-GMAT TUTOR Work Phone: [facility] [employer] [facility] 01-26-2024 09:17-0400 Diastolic blood pressure 96 mm[Hg] Razia Nicholson PIPE STEM REPAIRER-GMAT TUTOR Work Phone: [employer] [facility] 01-26-2024 09:17-0400 Systolic blood pressure 138 mm[Hg] Razia Nicholson PIPE STEM REPAIRER-GMAT TUTOR Work Phone: [facility] 11-25-2023 10:05-0400 Body height 163.83 cm [facility] 11-25-2023 10:05-0400 Body mass index (BMI) [Ratio] 34.7 kg/m2 [facility] 11-25-2023 10:05-0400 Body weight 93.21 kg [facility] 11-25-2023 10:05-0400 Diastolic blood pressure 98 mm[Hg] [facility] 11-25-2023 10:05-0400 Heart rate 67 /min [facility] 11-25-2023 10:05-0400 Respiratory rate 12 /min [facility] 11-25-2023 10:05-0400 Systolic blood pressure 137 mm[Hg] [facility] 10-05-2023 21:45-0500 Body height 163.83 cm Gonzalez Ball Other [employer] Other 09-07-2023 08:57-0500 Body height 163.83 cm Gonzalez Ball Other [facility] 09-07-2023 08:57-0500 Body mass index (BMI) [Ratio] 37.72 kg/m2 Gonzalez Ball Other [facility] [employer] Other 09-07-2023 08:57-0500 Body weight 101.24 kg [address] Ball Other [facility] 09-07-2023 08:57-0500 Diastolic blood pressure 89 mm[Hg] Gonzalez Ball Other [facility] 09-07-2023 08:57-0500 Systolic blood pressure 135 mm[Hg] Gonzalez Ball Other [facility] 09-02-2023 14:30-0500 Body height 163.83 cm Gonzalez Ball Other [facility] 09-02-2023 14:30-0500 Body mass index (BMI) [Ratio] 37.72 kg/m2 Gonzalez Ball Other [facility] [employer] Other 09-02-2023 14:30-0500 Body weight 101.24 kg [address] Ball [address] [facility] 09-02-2023 14:30-0500 Diastolic blood pressure 89 mm[Hg] Gonzalez Ball Other [facility] 09-02-2023 14:30-0500 Respiratory rate 12 /min Gonzalez Ball Other [facility] [employer] Other 09-02-2023 14:30-0500 Systolic blood pressure 135 mm[Hg] Gonzalez Ball Other [facility] 07-31-2023 08:31-0500 Body height 163.83 cm Gonzalez Ball Other [facility] [employer] Other 07-31-2023 08:31-0500 Body mass index (BMI) [Ratio] 38.22 kg/m2 Gonzalez Ball Other [facility] [employer] Other 07-31-2023 08:31-0500 Body weight 102.6 kg Gonzalez Ball Other [employer] Other 07-31-2023 08:31-0500 Diastolic blood pressure 74 mm[Hg] Gonzalez Ball Other [employer] Other 07-31-2023 08:31-0500 Systolic blood pressure 126 mm[Hg] Gonzalez Ball Other [employer] Other 06-23-2023 08:24-0500 Body height 163.83 cm Gonzalez Ball Other [employer] Other 06-23-2023 08:24-0500 Body mass index (BMI) [Ratio] 38.36 kg/m2 Gonzalez Ball Other [employer] Other 06-23-2023 08:24-0500 Body weight 102.97 kg Gonzalez Ball Other [employer] Other 06-23-2023 08:24-0500 Diastolic blood pressure 76 mm[Hg] Gonzalez Ball Other [employer] Other 06-23-2023 08:24-0500 Systolic blood pressure 124 mm[Hg] Gonzalez Ball Other [employer] Other 06-11-2023 09:43-0400 Body height 163.83 cm Gonzalez Ball Other [employer] Other 05-21-2023 08:43-0400 Body height 163.83 cm Gonzalez Ball Other [employer] Other 05-15-2023 12:00-0400 Body height 163.83 cm Gonzalez Ball Other [employer] Other 05-15-2023 12:00-0400 Body mass index (BMI) [Ratio] 38.7 kg/m2 Gonzalez Ball Other [employer] Other 05-15-2023 12:00-0400 Body weight 103.87 kg Gonzalez Ball Other [employer] Other 05-15-2023 12:00-0400 Diastolic blood pressure 76 mm[Hg] Gonzalez Ball Other [employer] Other 05-15-2023 12:00-0400 Systolic blood pressure 126 mm[Hg] Gonzalez Ball Other [employer] Other 04-17-2023 12:00-0400 Body height 163.83 cm Gonzalez Ball Other [employer] Other 04-17-2023 12:00-0400 Body mass index (BMI) [Ratio] 39.54 kg/m2 Gonzalez Ball Other [employer] Other 04-17-2023 12:00-0400 Body weight 106.14 kg Gonzalez Ball Other [employer] Other 04-17-2023 12:00-0400 Diastolic blood pressure 80 mm[Hg] Gonzalez Ball Other [employer] Other 04-17-2023 12:00-0400 Systolic blood pressure 130 mm[Hg] Gonzalez Ball Other [employer] Other 03-20-2023 09:30-0400 Body height 163.83 cm Gonzalez Ball Other [employer] Other 03-20-2023 09:30-0400 Body mass index (BMI) [Ratio] 40.56 kg/m2 Gonzalez Ball Other [employer] Other 03-20-2023 09:30-0400 Body weight 108.86 kg Gonzalez Wahl Other [employer] Other 03-20-2023 09:30-0400 Diastolic blood pressure 90 mm[Hg] Gonzalez Wahl Other [employer] Other 03-20-2023 09:30-0400 Respiratory rate 12 /min Gonzalez Wahl Other [employer] Other 03-20-2023 09:30-0400 Systolic blood pressure 124 mm[Hg] Gonzalez Wahl Other [employer] Other Encounters Encounter Date Encounter Type Care Provider Facility Start: 03-29-2025 End: 03-29-2025 ambulatory Gnozalez Wahl DO Work Phone: [facility] Work Phone: Start: 03-29-2025 End: 03-29-2025 Patient encounter procedure Gonzalez Wahl DO -[facility] Work Phone: Start: 03-29-2025 End: 03-29-2025 Patient encounter status Gonzalez Wahl DO [facility] Start: 09-20-2024 End: 09-20-2024 ambulatory [facility] Work Phone: Start: 09-20-2024 End: 09-20-2024 Patient encounter procedure [facility] Work Phone: Start: 06-27-2024 End: 06-27-2024 ambulatory [facility] Work Phone: Start: 06-27-2024 End: 06-27-2024 Patient encounter procedure [facility] Work Phone: Start: 06-23-2024 Non-patient / Non-visit [facility] Work Phone: Start: 05-12-2024 End: 05-12-2024 Orders Only Not In System Ref Prov [facility] Start: 05-11-2024 End: 05-11-2024 Evaluation and management of inpatient Kay Lechuga [facility] Comment on above: Encounter for colono scopy in patient with family history of colon cancer Start: 05-11-2024 Non-patient / Non-visit [facility] Work Phone: Start: 05-05-2024 End: 05-05-2024 Office outpatient visit 10 minutes Razia Nicholson PIPE STEM REPAIRER-GMAT TUTOR Work Phone: [facility] Comment on above: Encounter for colono scopy in patient with family history of colon cancer (Primary Dx) Start: 04-06-2024 Non-patient / Non-visit [facility] Work Phone: Start: 03-24-2024 End: 03-24-2024 ambulatory [facility] Work Phone: Start: 03-24-2024 End: 03-24-2024 Encounter for general adult medical examination without abnormal findings [facility] Start: 03-24-2024 End: 03-24-2024 Patient encounter procedure [facility] Work Phone: Start: 01-26-2024 End: 01-26-2024 Office outpatient new 30 minutes Razia Nicholson PIPE STEM REPAIRER-GMAT TUTOR Work Phone: [facility] Comment on above: Encounter for colono scopy in patient with family history of colon cancer (Primary Dx) Start: 01-26-2024 End: 01-26-2024 ambulatory RAZIA NICHOLSON [facility] Start: 11-25-2023 End: 11-25-2023 ambulatory [facility] Work Phone: Start: 11-25-2023 End: 11-25-2023 Patient encounter procedure [facility] Work Phone: Start: 10-05-2023 End: 10-05-2023 ambulatory Gonzalez Wahl Other [employer] Other Start: 10-05-2023 Telephone encounter Gonzalez Wahl [facility] Start: 10-05-2023 Non-patient / Non-visit [facility] Work Phone: Start: 09-18-2023 Chart abstracting Whitney Nguyen Joie lter PIPE STEM REPAIRER-GMAT TUTOR Work Phone: [facility] Start: 09-07-2023 End: 09-07-2023 ambulatory Gonzalez Wahl Other [employer] Other Start: 09-07-2023 Telephone encounter Gonzalez Wahl FP [facility] Start: 09-07-2023 End: 09-07-2023 Patient encounter procedure [facility]- Start: 09-06-2023 End: 09-06-2023 ambulatory Gonzalez Wahl Other [employer] Other Start: 09-06-2023 Telephone encounter Gonzalez Wahl FP [facility] Start: 09-04-2023 End: 09-04-2023 ambulatory Gonzalez Wahl Other [employer] Other Start: 09-04-2023 Encounter by [place] blanco Gonzalez Wahl [facility] Start: 09-02-2023 End: 09-02-2023 ambulatory Gonzalez Wahl Other [employer] Other Start: 09-02-2023 Office outpatient vi sit 15 minutes Gonzalez Wahl [facility] Start: 09-02-2023 End: 09-02-2023 Patient encounter procedure [facility]- Start: 08-05-2023 End: 08-05-2023 ambulatory Gonzalez Wahl Other [employer] Other Start: 08-05-2023 Telephone encounter Gonzalez Wahl [facility] Start: 08-04-2023 End: 08-04-2023 ambulatory Gonzalez Ball Other [employer] Other Start: 08-04-2023 Encounter by [place] blanco Gonzalez Ball [facility] Start: 07-31-2023 End: 07-31-2023 ambulatory Gonzalez Ball Other [employer] Other Start: 07-31-2023 Telephone encounter Gonzalez Ball [facility] Start: 06-23-2023 End: 06-23-2023 ambulatory Gonzalez Ball Other [employer] Other Start: 06-23-2023 Telephone encounter Gonzalez Ball [facility] Start: 06-11-2023 End: 06-11-2023 ambulatory Gonzalez Ball Other [employer] Other Start: 06-11-2023 Telephone encounter Gonzalez Ball [facility] Start: 05-21-2023 End: 05-21-2023 ambulatory Gonzalez Ball Other [employer] Other Start: 05-21-2023 Telephone encounter Gonzalez Ball FP [facility] Start: 05-15-2023 End: 05-15-2023 ambulatory Gonzalez Ball Other [employer] Other Start: 05-15-2023 Office outpatient vi sit 15 minutes Gonzalez Ball [facility] Start: 04-17-2023 End: 04-17-2023 ambulatory Gonzalez Ball Other [employer] Other Start: 04-17-2023 Office outpatient vi sit 15 minutes Gonzalez Ball [facility] Start: 04-16-2023 End: 04-16-2023 ambulatory Gonzalez Ball Other [employer] Other Start: 04-16-2023 Telephone encounter Gonzalez Ball FP [facility] Start: 03-31-2023 End: 03-31-2023 ambulatory Gonzalez Ball Other [employer] Other Start: 03-31-2023 Telephone encounter Gonzalez Wahl FP [facility] Start: 03-24-2023 End: 03-24-2023 ambulatory Gonzalez Wahl Other [employer] Other Start: 03-24-2023 Telephone encounter Gonzalez NOBLE [facility] Start: 03-20-2023 End: 03-20-2023 ambulatory Gonzalez Wahl Other [employer] Other Start: 03-20-2023 Encounter for genera l adult medical examination without abnormal findings Gonzalez Wahl [facility] Start: 03-20-2023 Periodic preventive med est patient 40-64yrs Gonzalez Wahl [facility] Start: 08-03-2022 End: 08-03-2022 ambulatory KELVIN HEWITT Facility:[facility] Start: 07-29-2022 End: 07-29-2022 ambulatory KELVIN HEWITT Facility:[facility] Start: 10-17-2021 Encounter for genera l adult medical examination without abnormal findings DR GONZALEZ WAHL [facility] Start: 10-16-2021 Adult health examination Frank darron Wahl Other [employer] Other Start: 10-16-2021 End: 10-17-[address] GONZALEZ WAHL Facility:[facility] Start: 10-16-2021 End: 10-17-2021 Encounter for general adult medical examination without abnormal findings DR GONZALEZ WAHL Facility:[facility] Start: 01-19-2020 Gynecological examin ation normal Gonzalez Wahl Other [employer] Other Procedures Date Procedure Procedure Detail Performing Clinician Start: 05-11-2024 Gonadotropin chorion ic qualitative Not In System Ref Prov Start: 02-23-2019 Colonoscopy Razia hernández PIPE STEM REPAIRER-GMAT TUTOR Work Phone: Depression screening Chriss Wahl Other Screening for malign ant neoplasm of breast Gonzalez Wahl Other Plan of Treatment Date Care Activity Detail Author Start: 05-05-2025 Adult BMI Screening Adult BMI Screen ing [facility] Start: 05-05-2025 Tobacco Screening Tobacco Screening [facility] Start: 01-25-2025 Tobacco Screening Tobacco Screening [facility] Start: 04-10-2024 COVID-19 Vaccine ( season) COVID-19 Vaccine ( season) [facility] Start: 04-10-2024 Influenza vaccination Influenza Vacc ine [facility] Start: 02-24-2024 Screening for malign ant neoplasm of colon Colonoscopy [facility] Start: 10-13-2023 End: 10-13-2023 Patient encounter procedure 10/13/2023 2:40 PM EST Office Visit [facility] [address] [place] [address] Whitney Loza PIPE STEM REPAIRER-GMAT TUTOR [address] [place] [address] [facility] Start: 04-10-2023 COVID-19 Vaccine ( season) COVID-19 Vaccine ( season) [facility] Start: 1999 Screening for malign ant neoplasm of cervix Pap Smear [facility] Start: 1997 DTaP,Tdap and Td Vac cines (1 - Tdap) DTaP,Tdap and Td Vaccines (1 - Tdap) [facility] Start: 1996 Adult BMI Follow Up Plan Adult BMI Follow Up Plan [facility] Start: 1996 Adult BMI Screening Adult BMI Screen ing [facility] Start: 1990 Depression Screening Depression Scre ening [facility] End: 01-24-2025 Colonoscopy Colonoscopy GI Routine Encounter For Colonoscopy In Patient With Family History Of Colon Cancer 1 Occurrences starting 01/26/2024 until 01/24/2025 [employer] Work Phone: Comment on above: 1 Occurrences starti ng 01/26/2024 until 01/24/2025 Comprehensive metabo lic 2000 panel - Serum or Plasma [facility] Comprehensive metabo lic 1999 panel - Serum or [facility] Payers Date Payer Category Payer Unknown ARCELIA BARNETT SS (PPO) [id number] 2022-Present [phone] [address] [place] [address] [id number] 2022 Blue [employer] Blue [employer] [id number] 2019 Unknown [id number] 1978 Unknown [id number] 1978 Unknown [id number] 1978 Unknown [id number] 3 1978 Unknown [id number] Unknown [id number] Social History Date Type Detail Facility Start: 09-20-2020 End: 01-26-2024 Sex Assigned At [facility] [employer] Other Start: 09-18-2023 End: 03-29-2025 Tobacco smoking status MIIS Never smoked tobacco [facility] Start: 1980 Sex Assigned At Not on file [facility] Start: 1980 Sex Assigned At Female F [facility] Tobacco smoking stat us MIIS Unknown if ever smoked [facility] Work Phone: Start: 06-27-2024 End: 09-20-2024 Sex Female (finding) [facility] Start: 01-04-2019 End: 05-05-2024 Tobacco use and exposure Smokeless tobacco non-user [facility] Start: 01-26-2024 End: 05-05-2024 Alcoholic beverage intake Current drinker of alcohol (finding) [facility] Start: 09-20-2020 End: 01-26-2024 History of Social function [facility] Childcare Unknown [facility] Start: 01-26-2024 Alcohol Comment social [facility] Clinical Notes 03-20-2023 to 03-29-2025 Note Date & Type Note Facility 03-29-2025 Evaluation note Diagnosis Onset Date Resolution Family history of colon cancer acute March 29 1:07pm FRANCO (generalized anxiety disorder) acute March 29, 2 025 1:07pm Migraine without aura and without status migrainosus, not intractable acute March 29 1:07pm Obesity acute March 29 025 1:07pm Screening mammogram for breast cancer noneactive March 29 1:07pm Wellness examination noneactive 2024 1:07pm [facility] Work Phone: 1(563) 565-474011-18-2024 Evaluation note* Diagnosis Onset Date Resolution Status Admit Date FRANCO (generalized anxiety disorder) acute June 27, 2 024 2:23pm Migraine without aura and without status migrainosus, not intractable acute June 27 2 024 2:23pm Obesity acute June 27, 2024 2:23pm FRANCO (generalized anxiety disorder) acute September 20, 2 025 1:53pm Migraine without aura and without status migrainosus, not intractable acute September 20, 2 025 1:53pm Obesity acute September 20, 2024 1:53pm [facility] Work Phone: 1(612) 585-357909-26-2024 History of Present illness Narrative* Razia Nicholson, PIPE STEM REPAIRER-GMAT TUTOR - 05/05/2024 3:00 PM EDT Images from the original note were not included. Chief Complaint: Family history of colon cancer History of Present Illness Ronel Perry is a 43 y.o. female who presents to the office for colonoscopy due to family history ofcolon cancer. Her father had colon cancer and was diagnosed when he was around 71-72 years old. Shedenies any changes in her bowels including diarrhea, constipation, abdominal pain, melena, hematochezia, unexplained weight loss. Her last colonoscopy was in [address] Hdez and this was a normal study. Review of Systems Constitutional: Negative for fever and unexpected weight change. HENT: Negative for trouble swallowing. Respiratory: Negative for shortness of breath. Cardiovascular: Negative for chest pain. Gastrointestinal: Negative for nausea, vomiting, abdominal pain, diarrhea, constipation, blood in stool and black tarry stool. Genitourinary: Negative for dysuria and difficulty urinating. Musculoskeletal: Negative for gait problem. Skin: Negative for rash and wound. Neurological: Negative for dizziness, weakness and light-headedness. Hematological: Does not bruise/bleed easily. Psychiatric/Behavioral: Negative for confusion. Past Medical History: Diagnosis Date Anxiety Past Surgical History: Procedure Laterality Date COLONOSCOPY KNEE ARTHROSCOPY Left TONSILLECTOMY Allergies Allergen Reactions Shellfish Derived Shortness Of Breath Fish Containing Products Current Outpatient Medications: norgestimate-ethinyl estradioL (ORTHO-CYCLEN) 0.25-35 mg-mcg per tablet, Take 1 tablet by mouth in the morning., Disp: , Rfl: traZODone (DESYREL) 50 mg tablet, Take 1 tablet (50 mg total) by mouth nightly as needed., Disp: , Rfl: phentermine (ADIPEX-P) 37.5 mg tablet, Take 1 tablet (37.5 mg total) by mouth every morning before breakfast. (Patient not taking: Reported on 05/05/2024), Disp: , Rfl: sod sulf-pot chloride-mag sulf 1.479-0.188- 0.225 gram tablet, Please see instructional sheet givenby physicians office., Disp: 24 tablet, Rfl: 0 Social History Socioeconomic History Marital status: Single Spouse name: Not on file Number of children: Not on file Years of education: Not on file Highest education level: Not on file Occupational History Not on file Tobacco Use Smoking status: Never Smokeless tobacco: Never Vaping Use Vaping status: Not on file Substance and Sexual Activity Alcohol use: Yes Alcohol/week: 4.0 standard drinks of alcohol Types: 4 Cans of beer per week Comment: social Drug use: Never Sexual activity: Not Currently Partners: Male control/protection: OCP Other Topics Concern Not on file Social History Narrative Not on file Social Determinants of Health Financial Resource Strain: Not on file Food Insecurity: Unknown (05/05/2024) Hunger Screening Food Insecurity - Worry: Never True Food Insecurity - Inability: Not on file Transportation Needs: Not on file Physical Activity: Not on file Stress: Not on file Social Connections: Not on file Interpersonal Safety: Not on file Housing Instability: Not on file Family History Problem Relation Age of Onset Diabetes Mother Hypertension Mother Pancreatitis Mother Atrial fibrillation Mother Colon cancer Father Diabetes Father Hypertension Father Atrial fibrillation Father Objective Physical Exam Constitutional: General: She is not in acute distress. Appearance: Normal appearance. She is not ill-appearing. HENT: Head: Normocephalic and atraumatic. Mouth/Throat: Mouth: Mucous membranes are moist. Eyes: Pupils: Pupils are equal, round, and reactive to light. Cardiovascular: Rate and Rhythm: Normal rate and regular rhythm. Pulmonary: Effort: Pulmonary effort is normal. No respiratory distress. Breath sounds: Normal breath sounds. Abdominal: General: There is no distension. Musculoskeletal: General: Normal range of motion. Skin: General: Skin is warm and dry. Neurological: Mental Status: She is alert and oriented to person, place, and time. Mental status is at baseline. Vital Signs: Blood pressure 143/84, pulse 69, height 162.6 cm (5' 4 ), weight 84.4 kg (186 lb). Respiratory Source: No data recorded Admission Weight: Weight: 84.4 kg (186 lb) Labs No results found for: WBC , HGB , HCT , MCV , PLT No results found for: GLU , CALCIUM , NA , K , CO2 , CL , BUN , CREATININE No results found for: AMYLASE No results found for: LIPASE No results found for: ALT , AST , GGT , ALKPHOS , LABBILI No results found for: INR , PROTIME Assessment Ronel Perry is a 43 y.o.female who presents to the office for colonoscopy due to a family history of colon cancer in her father. Plan Colonoscopy with possible biopsy and/or polypectomy. Risks, benefits, and alternatives discussed with patient. Educated on bowel evacuation preparation. Patient verbalizes understanding and wishes toproceed. Evaluation included: Preparing to see the patient (e.g., review of tests) Obtaining and/or reviewing separately obtained history Performing a medically appropriate examination and/or evaluation Counseling and educating the patient/family/caregiver Referring and communicating with other health rn home care Encounter for colonoscopy in patient with family history of colon cancer [Z12.11, Z80.0] [facility]RET [facility]EDA [facility] [place] This note was created with the assistance of a speech recognition program. While intending to generate a timely document that accurately reflects the content of the visit, no guarantee can be provided that every grammatical or spelling mistake has been or will be identified or corrected. Thank you for your understanding. BRET Tejeda 05/05/24 1523 documented in this encounterAsht[facility]06-[facility] History of Present illness Narrative* BRET Tejeda - 01/26/2024 9:30 AM EDT Images from the original note were not included. Chief Complaint: Family history of colon cancer History of Present Illness Ronel Perry is a 43 y.o. female who presents to the office for colonoscopy due to family history ofcolon cancer. Her father had colon cancer and was diagnosed when he was around 71-72 years old. Shedenies any changes in her bowels including diarrhea, constipation, abdominal pain, melena, hematochezia, unexplained weight loss. Her last colonoscopy was in [address] Hdez and this was a normal study. Review of Systems Constitutional: Negative for fever and unexpected weight change. HENT: Negative for trouble swallowing. Respiratory: Negative for shortness of breath. Cardiovascular: Negative for chest pain. Gastrointestinal: Negative for nausea, vomiting, abdominal pain, diarrhea, constipation, blood in stool and black tarry stool. Genitourinary: Negative for dysuria and difficulty urinating. Musculoskeletal: Negative for gait problem. Skin: Negative for rash and wound. Neurological: Negative for dizziness, weakness and light-headedness. Hematological: Does not bruise/bleed easily. Psychiatric/Behavioral: Negative for confusion. History reviewed. No pertinent past medical history. Past Surgical History: Procedure Laterality Date COLONOSCOPY KNEE ARTHROSCOPY Left TONSILLECTOMY Allergies Allergen Reactions Shellfish Derived Shortness Of Breath Fish Containing Products Current Outpatient Medications: norgestimate-ethinyl estradioL (ORTHO-CYCLEN) 0.25-35 mg-mcg per tablet, Take 1 tablet by mouth in the morning., Disp: , Rfl: phentermine (ADIPEX-P) 37.5 mg tablet, Take 1 tablet (37.5 mg total) by mouth every morning before breakfast., Disp: , Rfl: peg 3350-sod sulf,ysqd-nac-pmd 178.7-7.3-0.5 gram recon soln, Take 1 kit by mouth once daily for 1 dose. Please see instructional sheet given by physicians office., Disp: 1 each, Rfl: 0 Social History Socioeconomic History Marital status: Single Spouse name: Not on file Number of children: Not on file Years of education: Not on file Highest education level: Not on file Occupational History Not on file Tobacco Use Smoking status: Never Smokeless tobacco: Never Vaping Use Vaping status: Not on file Substance and Sexual Activity Alcohol use: Yes Comment: social Drug use: Never Sexual activity: Defer Other Topics Concern Not on file Social History Narrative Not on file Social Determinants of Health Financial Resource Strain: Not on file Food Insecurity: Not on file Transportation Needs: Not on file Physical Activity: Not on file Stress: Not on file Social Connections: Not on file Interpersonal Safety: Not on file Housing Instability: Not on file Family History Problem Relation Age of Onset Diabetes Mother Hypertension Mother Pancreatitis Mother Atrial fibrillation Mother Colon cancer Father Diabetes Father Hypertension Father Atrial fibrillation Father Objective Physical Exam Constitutional: General: She is not in acute distress. Appearance: Normal appearance. She is not ill-appearing. HENT: Head: Normocephalic and atraumatic. Mouth/Throat: Mouth: Mucous membranes are moist. Eyes: Pupils: Pupils are equal, round, and reactive to light. Cardiovascular: Rate and Rhythm: Normal rate and regular rhythm. Pulmonary: Effort: Pulmonary effort is normal. No respiratory distress. Abdominal: General: There is no distension. Palpations: Abdomen is soft. Musculoskeletal: General: Normal range of motion. Skin: General: Skin is warm and dry. Neurological: Mental Status: She is alert and oriented to person, place, and time. Mental status is at baseline. Vital Signs: Blood pressure (!) 138/96, weight 89.2 kg (196 lb 9.6 oz). Respiratory Source: No data recorded Admission Weight: Weight: 89.2 kg (196 lb 9.6 oz) Labs No results found for: WBC , HGB , HCT , MCV , PLT No results found for: GLU , CALCIUM , NA , K , CO2 , CL , BUN , CREATININE No results found for: AMYLASE No results found for: LIPASE No results found for: ALT , AST , GGT , ALKPHOS , LABBILI No results found for: INR , PROTIME Assessment Ronel Perry is a 43 y.o.female who presents to the office for colonoscopy due to a family history of colon cancer in her father. Plan Colonoscopy with possible biopsy and/or polypectomy. Risks, benefits, and alternatives discussed with patient. Educated on bowel evacuation preparation. Patient verbalizes understanding and wishes toproceed. Evaluation included: Preparing to see the patient (e.g., review of tests) Obtaining and/or reviewing separately obtained history Performing a medically appropriate examination and/or evaluation Counseling and educating the patient/family/caregiver Referring and communicating with other health rn home care Encounter for colonoscopy in patient with family history of colon cancer [Z12.11, Z80.0] BRET TEJEDA [facility] General Surgery [place] This note was created with the assistance of a speech recognition program. While intending to generate a timely document that accurately reflects the content of the visit, no guarantee can be provided that every grammatical or spelling mistake has been or will be identified or corrected. Thank you for your understanding. BRET Tejeda 01/26/24 0933 documented in this encounterAshtabula [facility]01-29-2024 Evaluation note* Encounter Date Diagnosis Assessment Notes Treatment Notes Treatment Clinical Notes Aug, Morbid (severe) obesity due to excess calories (ICD-10 - E66.01) [facility] [employer] Other 01-28-2024 Evaluation note* Encounter Date Diagnosis Assessment Notes Treatment Notes Treatment Clinical Notes Aug, Morbid (severe) obesity due to excess calories (ICD-10 - E66.01) [employer] Other 01-24-2024 Evaluation note* Encounter Date Diagnosis [...] exercise for 30 minutes, 3-5 times weekly. [employer] Other 12-27-2023 Evaluation note* Encounter Date Diagnosis Assessment Notes Treatment Notes Treatment Clinical Notes Jul, Other obesity due to excess calories (ICD-10 - E66.09) [employer] Other 12-22-2023 Evaluation note* Encounter Date Diagnosis Assessment Notes Treatment Notes Treatment Clinical Notes Jul, Other obesity due to excess calories (ICD-10 - E66.09) [facility] Other 11-14-2023 Evaluation note* Encounter Date Diagnosis Assessment Notes Treatment Notes Treatment Clinical Notes Jun, Other obesity due to excess calories (ICD-10 - E66.09) [facility] Other 10-12-2023 Evaluation note* Encounter Date Diagnosis Assessment Notes Treatment Notes Treatment Clinical Notes May, Other obesity due to excess calories (ICD-10 - E66.09) [facility] [employer] Other 10-06-2023 Evaluation note* Encounter Date Diagnosis [...] diet, exercise No adverse effects from Adipex [facility] [employer] Other 10-06-2023 Evaluation note* Encounter Date Diagnosis [...] index [BMI] 38.0-38.9, adult (ICD-10 - Z68.38) [facility] Other 09-08-2023 Evaluation note* Encounter Date Diagnosis [...] index [BMI] 39.0-39.9, adult (ICD-10 - Z68.39) [facility] [employer] Other 08-15-2023 Evaluation note* Encounter Date Diagnosis Assessment Notes Treatment Notes Treatment Clinical Notes Mar, Morbid (severe) obesity due to excess calories (ICD-10 - E66.01) [employer] Other 08-11-2023 Evaluation note* Encounter Date Diagnosis [...] mammogram for breast cancer (ICD-10 - Z12.31) [facility] Other Evaluation noteNo InformationNortLanc[facility] Other evaluation note* Diagnosis Onset Date Resolution Status FRANCO (generalized anxiety disorder) acute Migraine without aura and wi thout status migrainosus, not intractable acute Obesity acute [facility] Work Phone: Evaluation note* Diagnosis Onset Date Resolution Status Family history of colon cancer acute FRANCO (generalized anxiety disorder) acute Migraine without aura and wi thout status migrainosus, not intractable acute Screening for colon cancer n oneactive Screening mammogram for breast cancer noneactive Wellness examination noneact lea [facility] Work Phone: Evaluation note* Diagnosis Onset Date Resolution Status Admit Date FRANCO (generalized anxiety disorder) acute June 27, 024 2:23pm Migraine without aura and without status migrainosus, not intractable acute June 27, 024 2:23pm Obesity acute June 27, 2024 2:23pm [facility] Work Phone: Evaluation note* Diagnosis Encounter for colonoscopy in patient with family history of colon cancer- Primary [facility] Diagnosis Encounter for colonoscopy in patient with family history of colon cancer [facility] Diagnosis Encounter for colonoscopy in patient with family history of colon cancer- Primary [facility] this [facility] Narrative - Reported* Type Description Date Medical History FRANCO (generalized anxiety disorde r) Medical History Contraception management Medical History Labile mood Medical History Family history of colon cancer Medical History Migraine without aur a and without status migrainosus, not intractable Medical History Primary insomnia Surgical History LEFT KNEE ARTHROSCOPY 2005 Surgical History COLONOSCOPY 2019 Hospitalization History SEE SURGICAL HX [facility] Other InstructionsNot on filedocumented in this encounter [facility] filedocumented in this encounter [facility]Not on filedocumented in this encounter [facility]InstructionsNot on filedocumented in this encounter [facility] SystemReason for referral (narrative)No reason for referral information [facility]Sum[facility] Work Phone: Summary Purpose Family History Relationship Condition Age [...] Advance Directives No September 03, 2023 3:29pm Advance Directive Response Recorded Date/ Time Advance Directives No September 03, 2023 2:29pm Chief Complaint and Reason for Visit Chief [...] Screening mammogram for breast cancer Wellness examination Chief Complaint Admit Date CC Adult Risk Stratification June 232023 2:52pm 3 month f/u June 27, 2024 2:23pm Reason for Visit Admit Date FRANCO (generalized anxiety disorder) Novem 2023 2:23pm Migraine without aura and wi thout status migrainosus, not intractable June 27, 2024 2:23pm Obesity June 27, 2024 2:23pm Chief Complaint Admit Date CC Adult Risk Stratification June 232023 2:52pm 3 month f/u June 27, 2024 2:23pm 3 month f/u September 20, 2024 1:53pm Reason for Visit Admit Date FRANCO (generalized anxiety disorder) Novem 2023 2:23pm Migraine without aura and wi thout status migrainosus, not intractable June 27, 2024 2:23pm Obesity June 27, 2024 2:23pm FRANCO (generalized anxiety disorder) Febru rukhsana 2024 1:53pm Migraine without aura and wi thout status migrainosus, not intractable September 20, 2024 1:53pm Obesity September 20, 2024 1:53pm Chief Complaint Admit Date Wellness March 29, 2025 1: 07pm Reason for Visit Admit Date Family history of colon cancer March 292024 1:07pm FRANCO (generalized anxiety disorder) Augus t 2024 1:07pm Migraine without aura and wi thout status migrainosus, not intractable March 29, 2025 1:07pm Obesity March 29, 2025 1: 07pm Screening mammogram for breast cancer Au 2024 1:07pm Wellness examination March 29, 2025 1 :07pm Reason for Referral Specialty Diagnoses / Procedures Referred By Elder coleman Referred To Contact Diagnoses Encounter for colonoscopy in patient with family history of colon cancer Razia Nicholson, [employer] RE[employer] [address] [place] [address] Referral ID Status Reason Start Date Expiration Date Visits Re quested Visits Authorized [id number] Closed 1 1 Additional Source Comments INFORMATION SOURCE (unrecogn ized section and content) DATE CREATED AUTHOR 08/07/2022 [facility] DATE CREATED AUTHOR AUTHOR'S ORGANIZ ATION [facility]/27/[facility]24 [facility] REASON FOR VISIT (unrecogniz ed section and content) Reason Comments Colon Cancer Screening 5 year recall Reason Comments Follow-up Update H&P, colonosc opy at [facility], see [place] Teams (unrecognized sec tion and content) Team Status: Active Member Role Status Dates Gonzalez Wahl DO Primary Care Provider Active Team Status: Inactive Member Role Status Dates Gonzalez Wahl DO Primary Care Provider Active Start: March 29, 2025 End: March 29, 2025 Gonzalez Wahl DO Attending Provider Active Sta rt: March 29, 2025 End: March 29, 2025 Team Status: Active Member Role Status Dates Gonzalez Ball , DO Primary Care Provider Active Team Status: Active Member Role Status Dates Gonzalez Wahl , DO Primary Care Provide r, Attending Provider Active Start: April 06, 2024 Team Status: Active Member Role Status Dates Gonzalez Wahl DO Primary Care Provide r, Attending Provider Active Start: May 11, 2024 Team Status: Active Member Role Status Dates Gonzalez Wahl DO Primary Care Provide r, Attending Provider Active Start: June 23, 2024 Team Status: Inactive Member Role Status Dates Gonzalez Wahl DO Primary Care Provide r, Attending Provider Active Start: June 27, 2024 End: June 27, 2024 Team Status: Inactive Member Role Status Dates Gonzalez Wahl DO Attending Provider Active Sta rt: September 02, 2023 End: September 02, 2023 Team Status: Inactive Member Role Status Dates Gonzalez Wahl DO Attending Provider Active Sta rt: September 07, 2023 End: September 07, 2023 Team Status: Active Member Role Status Dates Gonzalez Wahl DO Primary Care Provider Active Start: October 05, [address] Attending Provider Active Start: [facility] 2023 Team Status: Inactive Member Role Status Dates Gonzalez Wahl DO Primary Care Provide r, Attending Provider Active Start: November 25, 2023 End: November 25, 2023 Team Status: Inactive Member Role Status Dates Gonzalez Wahl , DO Primary Care Provide r, Attending Provider Active Start: March 24, 2024 End: March 24, 2024 Team Status: Inactive Member Role Status Dates Gonzalez Wahl DO Primary Care Provide r, Attending Provider Active Start: September 20, 2024 End: September 20, 2024 Roll Scale Worker Relationship Specialty Start Date End Date Gonzalez Wahl DO [address] [place] [address] PCP - General Internal Medicine 11/30/18 Roll Scale Worker Relationship Specialty [place] [address] [place], [place] [id number] PCP - General Internal Medicine 11/30/18 Roll Scale Worker Relationship Specialty Start Date End Date Gonzalez Wahl DO [address] [place] [address] PCP - General Internal Medicine 11/30/18 Roll Scale Worker Relationship Specialty Start Date End Date Gonzalez Wahl DO [address] [place] [address] PCP - General Internal Medicine 11/30/18 Team Status: Inactive Member Role Status Dates Gonzalez Wahl DO Primary Care Provider Active Start: March 29, 2025 End: March 29, 2025 Gonzalez Wahl DO Attending Provider Active Sta rt: March 29, 2025 End: March 29, 2025 Goals (unrecognized section and content) Goals may [...] BE BASED ON THE PRIMARY CLINICAL RECORDS. [employer] [facility]. provides no warranty or guarantee of the accuracy or completeness of information in this document.
[2025-04-14 07:57] LABS: Hematocrit 45.3 % (36.0-48.0); Hemoglobin 15.2 g/dL (12.0-16.0); Immature Granulocytes Abs Auto 0.01 10^3/uL (0.00-0.03); Immature Granulocytes Pct Auto 0.2 % (0.0-0.5); Lymphocytes Absolute Auto 2.0 10^3/uL (1.2-3.8); Mean Corpuscular HGB Conc 33.6 g/dL (29.9-35.2); Mean Corpuscular Hemoglobin 30.4 pg (26.7-34.0); Mean Corpuscular Volume 90.6 fL (81.0-99.0); Platelet Count 281 10^3/uL (150-450); Red Blood Count 5.00 10^6/uL (4.20-5.40); White Blood Count 6.0 10^3/uL (4.0-11.0)
[2025-04-14 08:16] LABS: Alanine Aminotransferase 23 U/L (14-59); Albumin Globulin Ratio 0.8; Albumin Level 3.4 g/dL (3.4-5.0); Alkaline Phosphatase 49 U/L (46-116); Anion Gap 14.8; Aspartate Amino Transferase 11 U/L (15-37); Blood Urea Nitrogen 17.0 mg/dL (7.0-18.0); Calcium 8.7 mg/dL (8.5-10.1); Carbon Dioxide 26.6 mmol/L (21.0-32.0); Chloride 104 mmol/L (98-107); Cholesterol 198 mg/dL (<=200); Estimated GFR (African America >60 (>=60 mL/min/1.73m^2); Estimated GFR (Non-African Ame >60 (>=60 mL/min/1.73m^2); Globulin 4.1 g/dL; Glucose 94 mg/dL (74-106); HDL Cholesterol 61 mg/dL (40-60); Potassium 4.4 mmol/L (3.5-5.1); Sodium 141 mmol/L (136-145); Total Protein 7.5 g/dL (6.4-8.2); Triglycerides 88 mg/dL (<=150); VLDL CHOLESTEROL 17.6 mg/dL
--- NOTE | 2025-04-14 08:18 | MM_ITS ---
Patient Name: EDDIE VARGAS MR#: [id number] : 1980 Exam Date: 04/14/2025 Ordering Doctor: DR YULIANA THOMPSON D.O. RADIOLOGY REPORT PROCEDURE: MM TOMOSYNTHESIS SCREENING BI COMPARISON: MM TOMOSYNTHESIS SCREENING BI, 04/05/2024. MM TOMOSYNTHESIS SCREENING BI, 03/31/2023. MG MAMM SCREEN SUSAN W CAD, 02/06/2020. MG MAMM SUSAN SCRN W CAD DIG, 02/13/2014. INDICATIONS: Screening Calculator Name NCI Breast Cancer Risk Assessment Tool 5 Year Breast Cancer Risk 1.00% Lifetime Breast Cancer Risk 11.40% Personal Breast Cancer No Personal Ovarian Cancer No Treatments None Family Cancers Mother with renal cancer cancer at age 60; Father with colon cancer at age 65. LOCATION: [facility] BREAST COMPOSITION: The breasts are extremely dense, which lowers the sensitivity of mammography. FINDINGS: RIGHT BREAST: No significant suspicious finding. LEFT BREAST: No significant suspicious finding. DIAGNOSTIC CATEGORY 1--NEGATIVE. NO CHANGE FROM COMPARISON ASSESSMENT. RECOMMENDATIONS: ROUTINE MAMMOGRAM AND CLINICAL EVALUATION IN 12 MONTHS. Dictated by: Jonathan Cisneros MD on 04/14/2025 at 13:27 Approved by: Jonathan Cisneros MD on 04/14/2025 at 14:08
== END 2025-04-14 07:43 | disposition home or self-care (01) ==
LOC: MAMMO 07:42
PROVIDERS: PCP Internal Medicine; Visit Provider Internal Medicine
DX: Z00.00 Encounter for general adult medical examination without abnormal findings (principal); Z12.31 Encounter for screening mammogram for malignant neoplasm of breast; Z80.51 Family history of malignant neoplasm of kidney; Z80.0 Family history of malignant neoplasm of digestive organs
CPT/HCPCS: 36415; 77063; 77067; 80053; 80061; 85025